=== PATIENT | male | born 1945 | race Caucasian/White ===

== ENCOUNTER 2017-11-25 03:15 | Inpatient (IN) | payer OTHER, MEDICAID ==
--- NOTE | 2017-11-25 03:26 | EDPHY ---
H & P Stated Complaint: seizure seizure Time Seen by Provider: 11/25/17 03:21 HPI/ROS: HPI The patient presents with concern for a seizure, brought in by ambulance. The patient was sleeping and roommates heard him fall out of his bed. They found him shaking in his arms and legs. He was not able to respond to any questions. He had this for about 5 min before paramedics arrived. Paramedics noticed with a described as myoclonic jerking of both of his arms and legs which is rhythmic in nature though the patient was able to track them and follow some very basic commands. He received 5 of Versed IM with complete resolution in his symptoms. Glucose was 100 On arrival here, he is noted to have a right-sided facial droop with right upper and lower extremity devika paresis.. REVIEW OF SYSTEMS Constitutional: No fever, no chills. Eyes: No discharge. ENT: No sore throat. Cardiovascular: No chest pain, no palpitations. Respiratory: No cough, no shortness of breath. Gastrointestinal: No abdominal pain, no vomiting. Genitourinary: No hematuria. Musculoskeletal: No back pain. Skin: No rashes. Neurological: No headache. PMHx: History of clavicle fracture per our old records Soc Hx: Lives with roommates apartment somewhat disheveled PHYSICAL General Appearance: Alert, no distress Eyes: Pupils equal and round no pallor or injection ENT, Mouth: Mucous membranes dry Respiratory: There are no retractions, lungs are clear to auscultation Cardiovascular: Regular rate and rhythm Gastrointestinal: Abdomen is soft and non-tender, no masses, bowel sounds normal Neurological: Alert, aphasic, right-sided facial droop, right-sided hemiparesis Skin: Warm and dry, no rashes Musculoskeletal: Neck is supple non tender Extremities: symmetrical, full range of motion Psychiatric: there is no agitation Source: Patient, EMS Exam Limitations: Clinical condition - Medical/Surgical History Hx Asthma: No Hx Chronic Respiratory Disease: No Hx Diabetes: No Hx Cardiac Disease: No Hx Renal Disease: No Hx Cirrhosis: No Hx Alcoholism: No Hx HIV/AIDS: No Hx Splenectomy or Spleen Trauma: No Other PMH: Denies - Social History Smoking Status: Never smoked Constitutional: Initial Vital Signs Temperature (C) 36.8 C 11/25/17 03:20 Heart Rate 95 11/25/17 03:20 Respiratory Rate 20 11/25/17 03:20 Blood Pressure 138/85 H 11/25/17 03:20 O2 Sat (%) 95 11/25/17 03:20 O2 Delivery Mode Room Air Allergies/Adverse Reactions: Penicillins Allergy (Verified 08/21/16 16:03) Unknown Home Medications: Medication Instructions Recorded IBUPROFEN 2 tab TID 08/17/16 Medical Decision Making - Diagnostics EKG Interpretation: EKG: Complete interpretation has been separately recorded in the [facility] archive. Summary impression: Normal sinus rhythm Imaging Results: CT scan of head without contrast and CTA of brain demonstrate left-sided frontal convexity measuring 5 x 7 x 6 with 1.2 cm of midline shift without any acute hemorrhage or obvious infarct, discussed with Dr. Westfall of Radiology. 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 He received Versed in the field with improvement in his shaking in his arms and legs. He has no prior history of seizures. Differential diagnosis includes seizure with Jan's paralysis, hypoglycemia, CVA , intracranial hemorrhage, mass. 3:20 a.m.- I met the paramedics at the bedside to obtain their report. It is noted the patient has a dense right devika paresis. 3:25 a.m.- I discussed the case with the on-call [facility] neurologist Dr. Pickard. We agree that the patient is not a tPA candidate given onset of symptoms is unclear , last seen normal by roommates before bed last night. He may be a candidate for intra-arterial tPA if he has findings on his CTA. 3:51 a.m.- Patient's CT and CTA is a consistent with meningioma with midline shift. I have consulted with Neurosurgery, Dr. Paul who recommends admission to the medicine service, Neurology consult, load of Keppra and MRI in the morning. She agrees with this is likely a Jan's paralysis from his seizure. She recommends Keppra 1 g now and then 750 twice daily. She recommends Step-Down Unit admission. 4:20 a.m.- Patient's weakness is resolving somewhat and he is able to speak though is still having some dysphagia. I have discussed the results of his imaging with him and he is aware that he has a brain tumor. I have discussed the case with the hospitalist Dr. Mcclellan who will admit the patient. Critical Care Time: CRITICAL CARE Critical care time spent by me, Dr. Jiang, exclusively with this patient was 30 minutes, exclusive of PA time and exclusive of procedures. The organ system at risk was neuro and I gave antiepileptic drugs, IV fluids, transferred patient to the step-down unit to prevent worsening of the patients condition. - Data Points Laboratory Results: Laboratory Results 11/25/17 03:20 11/25/17 03:20 11/25/17 11/25/17 11/25/17 03:20 03:20 03:20 WBC 7.69 10^3/uL 10^3/uL (3.80-9.50) RBC 4.64 10^6/uL 10^6/uL (4.40-6.38) Hgb 14.9 g/dL g/dL (13.7-17.5) Hct 43.8 % % (40.0-51.0) MCV 94.4 fL fL (81.5-99.8) MCH 32.1 pg pg (27.9-34.1) MCHC 34.0 g/dL g/dL (32.4-36.7) RDW 13.2 % % (11.5-15.2) Plt Count 236 10^3/uL 10^3/uL (150-400) MPV 10.7 fL fL (8.7-11.7) Neut % (Auto) 63.2 % % (39.3-74.2) Lymph % (Auto) 27.3 % % (15.0-45.0) [place] % (Auto) 7.5 % % (4.5-13.0) Eos % (Auto) 0.8 % % (0.6-7.6) Baso % (Auto) 0.9 % % (0.3-1.7) Nucleat RBC Rel Count 0.0 % % (0.0-0.2) Absolute Neuts (auto) 4.86 10^3/uL 10^3/uL (1.70-6.50) Absolute Lymphs (auto) 2.10 10^3/uL 10^3/uL (1.00-3.00) Absolute Monos (auto) 0.58 10^3/uL 10^3/uL (0.30-0.80) Absolute Eos (auto) 0.06 10^3/uL 10^3/uL (0.03-0.40) Absolute Basos (auto) 0.07 10^3/uL 10^3/uL (0.02-0.10) Absolute Nucleated RBC 0.00 10^3/uL 10^3/uL (0-0.01) Immature Gran % 0.3 % % (0.0-1.1) Immature Gran # 0.02 10^3/uL 10^3/uL (0.00-0.10) PT 13.9 SEC SEC (12.0-15.0) INR 1.05 (0.83-1.16) Sodium 141 mEq/L mEq/L (135-145) Potassium 4.5 mEq/L mEq/L (3.5-5.2) Chloride 100 mEq/L mEq/L (97-110) Carbon Dioxide 15 mEq/l L mEq/l (22-31) Anion Gap 26 mEq/L H mEq/L (8-16) BUN 9 mg/dL mg/dL (7-23) Creatinine 0.7 mg/dL mg/dL (0.7-1.3) Estimated GFR > 60 Glucose 78 mg/dL mg/dL (70-100) Calcium 9.8 mg/dL mg/dL (8.5-10.4) Medications Given: Discontinued Medications Levetiracetam (Keppra (Premix)) 100 mls @ 400 mls/hr IV EDNOW ONE Stop: 11/25/17 04:01 Last Admin: 11/25/17 04:16 Dose: 100 mls Departure - Departure Disposition: [facility] Inpatient Acute Clinical Impression: Seizure, Meningioma, Facial droop, Aphasia, Jan's paralysis Hemiparesis Qualifiers: Hemiparesis etiology: unspecified Hemiparesis laterality: right dominant side Qualified Code(s): G81.91 - Hemiplegia, unspecified affecting right dominant side Condition: Fair
--- NOTE | 2017-11-25 03:32 | CPEKG ---
Heart Rate: 96 RR Interval: 625 P-R Interval: 144 QRSD Interval: 116 QT Interval: 352 QTC Interval: 445 P [place]: -17 QRS [place]: 45 T Wave [place]: 18 EKG Severity - ABNORMAL ECG - EKG Impression: SINUS RHYTHM EKG Impression: NONSPECIFIC INTRAVENTRICULAR CONDUCTION DELAY EKG Impression: BORDERLINE ST DEPRESSION, LATERAL LEADS Electronically Signed By: Shasta Jiang 25-Nov-2017 06:21:32
[2017-11-25] MEDS ORDERED: levETIRAcetam 1000MG/NACL 100 ML IV ONE (03:47)
[2017-11-25 03:56] LABS: PLATELET COUNT 236 10^3/uL (150-400)
[2017-11-25 04:05] LABS: INR 1.05 (0.83-1.16); PROTIME(PATIENT) 13.9 SEC (12.0-15.0)
[2017-11-25] MEDS ORDERED: HYDROCODONE/APAP 5/325 TAB PO PRN (05:17)
[2017-11-25] MEDS ORDERED: ONDANSETRON 4 MG/2 ML VIAL IVP PRN (05:17)
[2017-11-25] MEDS ORDERED: ACETAMINOPHEN 325 MG TAB PO PRN (05:17)
[2017-11-25] MEDS ORDERED: LORazepam 2 MG/ML INJ IVP PRN ×2 (05:17→14:20)
[2017-11-25] MEDS ORDERED: NS 1,000 ML IV SCH (05:30)
--- NOTE | 2017-11-25 08:18 | PDGENHP ---
History and Physical - Chief Complaint Seizure - History of Present Illness Source-patient provides history is a fair historian. He does have some expressive aphasia. EMR was reviewed and case discussed with ED provider. HPI - pleasant 72-year-old gentleman with no significant past medical history presents emergency department visit after his roommate heard him fall on the floor. Patient was apparently having a seizure in EMS was called. Upon arrival they had reported patient with continued to have some rhythmic movements. He was given Versed with resolution of his symptoms. Patient was awake and verbal. He had noted right-sided hemiparesis and right lower facial drooping. Additionally patient had some expressive aphasia which has slowly improved during his time in the emergency department. Patient denies any headaches numbness or tingling with exception to the exception of weakness on right side. Patient denies any changes in vision.He reports that he has had 3 lifetime seizures starting several months ago. Patient reported similar symptoms with weakness and did not seek any medical attention as his symptoms resolved. He admits that he does not seek medical attention unless absolutely necessary high and reports that he is overall pretty healthy. History Information - Allergies/Home Medication List Allergies/Adverse Reactions: Penicillins Allergy (Verified 08/21/16 16:03) Unknown Home Medications: NK [No Known Home Meds] 11/25/17 [Last Taken Unknown] I have personally reviewed and updated: family history, medical history, social history, surgical history - Past Medical History Additional medical history: History of seizures not previously evaluated. Patient reports 2 episodes at home over the last several months. - Surgical History Additional surgical history: Right clavicle ORIF - Family History Additional family history: Mother with breast cancer - Social History Smoking Status: Never smoked Alcohol Use: Occasionally (1-2 beers daily. Patient has been decreasing down from 4 to 5) Drug Use: None Additional social history: Patient lives in a home with roommates. Code status is limited. Patient does not want to be intubated. Review of Systems Review of Systems: ROS: 10pt was reviewed & negative except for what was stated in HPI & below Physical Exam Physical Exam: Selected Entries 11/25/17 03:20 Blood Pressure Automatic Method Heart Rate 95 Respiratory 20 Rate O2 Sat (%) 95 Temperature (C) 36.8 C Blood Pressure 138/85 H Mean Arterial 102 H Pressure (MAP) O2 Delivery Room Air Mode Temperature Oral Source Temp Pulse Resp BP Pulse Ox 36.8 C 75 17 154/82 H 96 11/25/17 07:29 11/25/17 07:29 11/25/17 07:29 11/25/17 07:29 11/25/17 07:29 Constitutional: no apparent distress, unkempt, other (NAD. Patient lays quietly in bed awake and interactive. He is a little disheveled.) Eyes: PERRL, anicteric sclera, other (No nystagmus), No EOMI (Patient with right lateral gaze that does not cross midline.) Ears, Nose, Mouth, Throat: moist mucous membranes, no oral mucosal ulcers, poor dentition Cardiovascular: regular rate and rhythym, no murmur, rub, or gallop, No systolic murmur, No edema Peripheral Pulses: 1+: dorsalis-pedis (R), dorsalis-pedis (L) Respiratory: no respiratory distress, no rales or rhonchi, clear to auscultation , No expiratory wheeze Gastrointestinal: normoactive bowel sounds, soft, non-tender abdomen, no palpable masses Genitourinary: no bladder tenderness, No xie in urethra Skin: warm, normal color, no rashes or abrasions Musculoskeletal: other (Right-sided hemiparesis upper and lower extremities.), No generalized weakness Neurologic: AAOx3, sensation intact bilaterally, facial droop (Right lower facial droop with slight on the nasal labial fold flattening), No CN II-XII Intact (Right lower patient had her and her right lateral gaze not crossing midline) Psychiatric: interacting appropriately, poor insight, other (Patient with some expressive aphasia and repetitive words. Poor insight into degree of illness), No anxious, No depressed Lab Data & Imaging Review 11/25/17 03:20 11/25/17 03:20 WBC 7.69 10^3/uL (3.80-9.50) 11/25/17 03:20 RBC 4.64 10^6/uL (4.40-6.38) 11/25/17 03:20 Hgb 14.9 g/dL (13.7-17.5) 11/25/17 03:20 Hct 43.8 % (40.0-51.0) 11/25/17 03:20 MCV 94.4 fL (81.5-99.8) 03/12/18 03:20 MCH 32.1 pg (27.9-34.1) 11/25/17 03:20 MCHC 34.0 g/dL (32.4-36.7) 11/25/17 03:20 RDW 13.2 % (11.5-15.2) 11/25/17 03:20 Plt Count 236 10^3/uL (150-400) 11/25/17 03:20 MPV 10.7 fL (8.7-11.7) 11/25/17 03:20 Neut % (Auto) 63.2 % (39.3-74.2) 11/25/17 03:20 Lymph % (Auto) 27.3 % (15.0-45.0) 11/25/17 03:20 [place] % (Auto) 7.5 % (4.5-13.0) 11/25/17 03:20 Eos % (Auto) 0.8 % (0.6-7.6) 11/25/17 03:20 Baso % (Auto) 0.9 % (0.3-1.7) 11/25/17 03:20 Nucleat RBC Rel Count 0.0 % (0.0-0.2) 11/25/17 03:20 Absolute Neuts (auto) 4.86 10^3/uL (1.70-6.50) 11/25/17 03:20 Absolute Lymphs (auto) 2.10 10^3/uL (1.00-3.00) 11/25/17 03:20 Absolute Monos (auto) 0.58 10^3/uL (0.30-0.80) 11/25/17 03:20 Absolute Eos (auto) 0.06 10^3/uL (0.03-0.40) 11/25/17 03:20 Absolute Basos (auto) 0.07 10^3/uL (0.02-0.10) 11/25/17 03:20 Absolute Nucleated RBC 0.00 10^3/uL (0-0.01) 11/25/17 03:20 Immature Gran % 0.3 % (0.0-1.1) 11/25/17 03:20 Immature Gran # 0.02 10^3/uL (0.00-0.10) 11/25/17 03:20 PT 13.9 SEC (12.0-15.0) 11/25/17 03:20 INR 1.05 (0.83-1.16) 11/25/17 03:20 Sodium 141 mEq/L (135-145) 11/25/17 03:20 Potassium 4.5 mEq/L (3.5-5.2) 11/25/17 03:20 Chloride 100 mEq/L (97-110) 11/25/17 03:20 Carbon Dioxide 15 mEq/l (22-31) L 11/25/17 03:20 Anion Gap 26 mEq/L (8-16) H 11/25/17 03:20 BUN 9 mg/dL (7-23) 11/25/17 03:20 Creatinine 0.7 mg/dL (0.7-1.3) 11/25/17 03:20 Estimated GFR > 60 11/25/17 03:20 Glucose 78 mg/dL (70-100) 11/25/17 03:20 Calcium 9.8 mg/dL (8.5-10.4) 11/25/17 03:20 Imaging Review: Preliminary CT head report. LEFT FRONTAL CONVEXITY 5 X 7 X 6 CM MASS WITH MILD SHIFT TO RIGHT NO BLEED DISCUSSED WITH DR DÍAZ AT 0335 Visualized and Interpreted Chest x-ray results: Yes Chest X-Ray results: no infiltrate, other (Hardware over right clavicle) Visualized and Interpreted imaging results: Yes Visualized and Interpreted EKG results: Yes EKG additional interpertation: NSR in the 90s. IVCD. Less than [address] depressions in the lateral leads. No acute ST changes otherwise. QTC is 445. Assessment & Plan Assessment: Seizure (Acute) - have patient status post Versed home prior to her arrival. Will leave Ativan p.r.n.. He has been giving a 1000 mg dose of Keppra loaded of with plans to continue 750 mg twice daily for now. Neurosurgery was consulted on for patient's history of meningioma. Neurology consultation has also been entered. Jan's paralysis with (Acute)Aphasia (Acute)Facial droop (Acute)Hemiparesis ( Acute) - patient's symptoms have slowly been improving. She will CT CTA are within normal limits. Neurology consult as noted above. Meningioma (Acute) - neurosurgery consulted from the emergency department will evaluate patient. FEN - IV fluid supplementation. Electrolyte monitoring and replacement p.r.n. NPO at this time with patient has a right lower facial drooping. PPX - SCDs. Holding anticoagulation pending neurosurgical evaluation. Cor-limited resuscitation desired. She patient does no want to be intubated on life support. He is amenable to cardiac resuscitation. Disposition-patient has been admitted to inpatient status for further evaluation of seizures with findings of large hemangioma in shift. Anticipate greater than 2 midnight stay. Patient has been admitted to the SCU for close neurologic monitoring.
--- NOTE | 2017-11-25 10:14 | PDMN ---
Medical Necessity Medical necessity: est los>2mn for acute seizure, w/meningioma per CT, w/ expressive aphasia and R facial droop; admit to ICU/SDU for close neurologic monitoring, neuro consult; hx 2 prior sz's in recent mos; per order and H&P 11/26
[2017-11-25] MEDS ORDERED: DEXAMETHASONE 4 MG/ML VIAL IVP SCH (12:00)
--- NOTE | 2017-11-25 12:12 | ASMTCMCOM ---
CM Note CM Note Notes: 72yr old male admitted for Sz with Brain mass, R sided weakness, Aphasia, Facial droop. Patient has a Hx of Sz, R clavical fx, ETOH. Patient to have surgery next week. Spoke with patient. He is having a hard time expressing himself, and didn't want to talk about medical decisions or people who might represent him at this time. CM to follow. Date Signed: 11/25/2017 12:11 PM Electronically Signed By:Naa Newsome LCSW
--- NOTE | 2017-11-25 12:56 | HOSPPROG ---
Hospitalist Progress Note Assessment/Plan: #Acute seizure: due to meningioma: NSGY evaluated. IV steroids, Keppra #Meningioma: patient agreeable to surgery. Cont meds above #Acute encephalopathy: Jan's paralysis with seizure. Now resolved #Goals: has medical decision capacity and does not want anyone to make decisions for him. Will have Ethics help with MOST form #Right leg/arm weakness: PT/OT #Diet: regular #DVT ppx: SCDs #Disp: cont inpatient admission for PT/OT, IV steroids. May got to floor if ok by NSGY Subjective: right leg weakness is new Objective: Vital Signs Temp Pulse Resp BP Pulse Ox 36.8 C 77 18 146/80 H 93 11/25/17 07:29 11/25/17 12:10 11/25/17 12:10 11/25/17 12:10 11/25/17 12:10 11/24/17 11/25/17 11/26/17 05:59 05:59 05:59 Intake Total 0 Output Total 300 Balance -300 PT 13.9 SEC (12.0-15.0) 11/25/17 03:20 INR 1.05 (0.83-1.16) 11/25/17 03:20 - Physical Exam Constitutional: no apparent distress Eyes: PERRL Ears, Nose, Mouth, Throat: moist mucous membranes Cardiovascular: regular rate and rhythym Respiratory: no respiratory distress Gastrointestinal: normoactive bowel sounds Genitourinary: no bladder fullness, No xie in urethra Skin: warm Musculoskeletal: other (right UE/LE weakness) Neurologic: AAOx3, CN II-XII Intact Psychiatric: interacting appropriately ICD10 Worksheet Patient Problems: Problems Problem Status Onset Aphasia Acute Facial droop Acute Hemiparesis Acute Meningioma Acute Seizure Acute Jan's paralysis Acute Right clavicle fracture Acute
--- NOTE | 2017-11-25 13:51 | GCON ---
[f rep st] CONSULTATION DATE OF CONSULTATION: 11/25/2017 REFERRING PHYSICIAN: Sergio Velasquez MD HISTORY: The patient is a 72-year-old gentleman whom I am asked to see in neurologic consultation re garding seizure. He came to the hospital with a report of seizure early this morning. He said that he has had maybe a couple of other seizures in the past but has never had formal evaluation for that. He has some mild weakness on the right side from an old clavicular fracture which he thought might explain why his right side is getting weaker. He has subsequently been found to have a very large le ft hemisphere mass lesion, most likely thought to be meningioma with a [id number] shift. He was t reated with Versed. He has been started on anticonvulsant therapy. PAST SURGICAL HISTORY: He had surgery for his right clavicle several years ago. FAMILY HISTORY: Breast cancer. SOCIAL HISTORY: Reportedly, occasionally, might drink 1 or 2 beers per day but, historically, has co nsumed more alcohol than that. He lives home with roommates. No smoking reported. No reported drug use. PHYSICAL EXAMINATION: VITAL SIGNS: His current blood pressure is 154/82, pulse of 75, temperature 3 6.8, respirations 17. GENERAL: Well developed. Lying in the bed. No acute distress. HEENT: Eyes are clear. Oropharynx reveals very poor dentition. NEURO: He is oriented. He seems to have a lit tle bit of trouble with his verbal expression, but that is mild. It is not clear that that is differ ent from his baseline. Pupils 3 mm and reactive. Extraocular movements intact. Normal facial sensa tion. There is perhaps subtle right lower facial weakness, but that is also quite mild. The motor e xamination reveals severe right-sided weakness in the range of 1/5 in the right upper extremity and 2 /5 in the right lower extremity. Sensation is preserved. Hyporeflexia on the right. DATA REVIEWED: The imaging studies were reviewed and show the mass lesion in the left hemisphere, pedraza rrounding edema causing some mass effect, and [id number] shift. That is on the head CT. MRI is a pparently pending. Laboratory studies: Unremarkable electrolytes and CBC, other than he had a low bicarbonate when he c jesus alberto in, consistent with experiencing a seizure. IMPRESSION: This was a total unit time of 70 minutes. The patient had a life-threatening event with seizure in the setting of a large mass lesion in the left hemisphere, causing [id number] shift an d a generalized convulsion, which would have almost certainly been partial with secondary generalizat ion. He has experienced a few of these as well in the past but had never had brain imaging until now . It is clear that this lesion is the source of his symptoms and findings and will be addressed thro [facility] neurosurgical management later this week most likely. He is going to be started on Decadron to d ecrease the edema, and he should continue on treatment with Keppra which is currently 750 mg b.i.d. We will continue to monitor his progress. /[id number]/MODL
[2017-11-25] MEDS ORDERED: LORazepam 1 MG TAB PO PRN (14:20)
--- NOTE | 2017-11-25 15:21 | GCON ---
[f rep st] CONSULTATION INPATIENT CONSULTATION DATE OF CONSULTATION: 11/25/2017 CHIEF COMPLAINT: Seizure. HISTORY OF PRESENT ILLNESS: Patient is a 72-year-old gentleman who was found to be having a seizure yesterday by his roommate. He was brought to the emergency department by [facility] and was treated with seizure medication upon arrival to the emergency department. Patient states he has had two seizures prior to this episode. He states he has had right arm weakness that he started feeling approximately 1-1/2 years ago following a right clavicle surgery. Patient denies any headaches. He does have right-sided hemiparesis with some right facial droop as well. REVIEW OF SYSTEMS: Ten-point review of systems was performed and negative aside from what was mentioned in the HPI. MEDICAL HISTORY: Patient notes he has had 3 seizures in his lifetime, the most recent being yesterday. MEDICATIONS: Patient denies any home medications. SURGICAL HISTORY: Patient had right clavicle surgery 1-1/2 years ago. FAMILY HISTORY: Patient's mother had breast cancer. ALLERGIES: Penicillin. SOCIAL HISTORY: Patient drinks alcohol daily, approximately 2-3 beers. Drug use , none. Patient denies any use of nicotine products and does not use marijuana. Patient lives in a home with roommates. PHYSICAL EXAM: VITAL SIGNS: Blood pressure is 132/69, heart rate is 81, respiratory rate is 16, oxygen saturation 97% on room air, temperature is 36.8 degrees Celsius. HEENT: Head normocephalic and atraumatic. Pupils are equal, round, and reactive to light. EOMIs intact. Full visual mosqueda by confrontation. RESPIRATORY AND CARDIAC: Deferred. ABDOMEN: Deferred. GENITOURINARY AND RECTAL: Deferred. NEUROLOGIC: The patient is awake and alert and oriented to name, place, location, and time and situation. His memory is intact to immediate past and current events. Speech: He does have some expressive dysphasia. Cranial nerves 2-12 are grossly intact, aside from right facial droop and right accessory nerve being absent with shoulder shrug. Patient has 1/5 to 2/5 strength on the right side in the right upper and right lower extremities that includes deltoids, biceps, triceps, brachioradialis, wrist flexion, extensors, supervisor records change, intrinsic fingers, iliopsoas, quadriceps, hamstrings, plantar flexion, dorsiflexion, EHL testing. Patient's strength on the left in the left upper and left lower extremities are 5/5 in all the above muscle groups. Sensation is grossly intact to light touch throughout all dermatomal distributions in bilateral lower extremities. Reflexes, biceps, triceps, brachioradialis, knee jerk, and ankle jerk are 2+/4. Toes are downgoing bilaterally. Adam sign is negative. Babinski is negative. No evidence of clonus. LAB RESULTS: White blood cell count 7.69, hemoglobin 14.9, hematocrit 43.8, platelets 236. PT 13.9, INR 1.05. Sodium 141, potassium 4.5, BUN 9, creatinine 0.7, glucose 78. IMAGING: CT of the head performed at 0323 this morning demonstrates a very large left-sided mass. MRI of the brain has been ordered and is pending for further evaluation of this mass. ASSESSMENT AND PLAN: Patient is a 72-year-old gentleman who was brought to the emergency department yesterday by EMS following a witnessed seizure by his roommate. Patient underwent a CT of the brain which shows a very large left cranial mass. Patient is experiencing right-sided hemiparesis, as well as expressive dysphasia and a right facial droop. Patient is otherwise intact. MRI of the brain, with and without contrast, is pending. Based on the CT, it is likely this patient has a large meningioma that will need resected. Will keep him on seizure prophylaxis, using Keppra twice daily 750 mg. We will start him on some IV Decadron to help with edema. We will continue to follow his neurological exam closely and likely plan for surgery later this week or early next week with Dr. Sergio Velasquez. We will bring him to surgery sooner if his status declines. We will need to closely watch patient for any signs or symptoms of ETOH withdrawal as well. The patient was seen and examined in the intensive care unit today, November 25, 2017, at 7:[address] Jama and myself. Please call Neurosurgery with any questions or concerns. /[id number]/MODL MTDD
[2017-11-25] MEDS ORDERED: levETIRAcetam 750 MG in NS (SYRINGE) 50 ML IV SCH (16:00)
[2017-11-25] MEDS: levETIRAcetam 500 MG TAB PO SCH (16:41)
[2017-11-25] MEDS ORDERED: DEXAMETHASONE 4 MG TAB PO SCH (16:45)
[2017-11-25] MEDS: DEXAMETHASONE 4 MG TAB PO SCH (18:06)
--- NOTE | 2017-11-25 20:27 | GCON ---
[f rep st] CONSULTATION SIGN MANUFACTURER CONSULTATION DATE OF CONSULTATION: 11/25/2017 REASON FOR ADMISSION: Brain mass with seizure. HISTORY OF PRESENT ILLNESS: The patient is a pleasant 72-year-old white male who presented to the em ergency room after complaints of new onset seizure and left-sided weakness. CT scan of the head reve aled a mass. He was admitted to Intensive Care Unit. Neurology has been consulted, as has Neurosurg tammy. Currently, the patient is resting comfortably. He has had no further episodes of seizure. PAST MEDICAL HISTORY: None. PAST SURGICAL HISTORY: He has had a right clavicle ORIF. ALLERGIES: Penicillin. SOCIAL HISTORY: No history of tobacco use. Infrequent alcohol use. He lives at home with roommates . REVIEW OF SYSTEMS: A 10-point review of systems was performed. It is negative except for what is st ated in HPI. PHYSICAL EXAM: VITAL SIGNS: Blood pressure 146/80, pulse 77, respiration 18, temperature 36.8, oxyg en saturation is 93% on room air. GENERAL: He is a well-developed 72-year-old white male who is res ting comfortably, in no acute distress. HEENT: Eyes PERRL. EOMI. Throat shows no erythema or tons illar hypertrophy. NECK: Supple. There is no cervical adenopathy. HEART: Regular rate and rhythm without murmurs, rubs, or gallops. LUNGS: Diminished breath sounds, but no wheeze. ABDOMEN: Soft , nontender. Bowel sounds are present. EXTREMITIES: No clubbing, cyanosis, or edema. LABORATORIES: White count 7.6, hemoglobin 14, hematocrit 43, platelet count 236, INR 1.05, sodium 14 1, potassium 4.5, chloride 100, CO2 is 15, BUN 9, creatinine 0.7, glucose is 78. Chest x-ray is clear. CT scan of the head shows a left frontal 5 x 7.6 x 6 cm mass with mass effect and some evidence of herniation. IMPRESSION: 1. Brain mass, likely a meningioma. 2. Seizures. 3. Right-sided weakness. RECOMMENDATIONS: 1. Agree with IV steroids. 2. Neurosurgery to see. 3. Neurology has been consulted. 4. Continue Keppra. 5. DVT and PE prophylaxis. 6. Stress ulcer prophylaxis. /[id number]/MODL
[2017-11-26] MEDS: DEXAMETHASONE 4 MG TAB PO SCH ×4 (00:01→18:00)
[2017-11-26] MEDS: levETIRAcetam 500 MG TAB PO SCH ×2 (05:35→21:01)
--- NOTE | 2017-11-26 07:32 | NEUSURGPN ---
Assessment/Plan: Assessment: 72 yo male that is admitted to with critical care, Neurology and NS consulted who has a large left meningioma on CT Plan: -large left sided meningioma: pending MRI of the brain with and wo today -pt with 3rd time seizure with Jan's paralysis -continued right sided paresis-pt has some right data management specialist and biceps-2/5 -continue with steroids -continue with Keppra -pt has hx of drinking-watching for withdraw s/s -Dr Velasquez to possibly do surgery on Saturday 12/02 pending review of MRI and possible DTs -call with any questions or concerns -pt understands and agrees Subjective: Awake and alert. NAD. No f/c/n/v/d. No neck/chest/abd or gu complaints. Objective: AAO x 3, PERRLA/EOMI continued mild facial droop 5/5 LUE/LLE 0/5 to RUE/RLE except for 2/5 data management specialist, 2/5 biceps, right DF/PF at 3/5 Neuro Check Frequency: per routine Urinary Catheter in Place: No - Physician Discussed Patient with : Eva Patient Seen by : Eva Neurosurgery Physical Exam - Vitals, I&O, Labs I and O 11/25/17 11/26/17 11/27/17 05:59 05:59 05:59 Intake Total 1813 Output Total 2200 Balance -387 Weight 72.7 kg Intake: Oral (ml) 900 IV Infused (ml) 913 Ns 1,000 ml @ 75 mls/hr 913 IV CONT EMILY Rx#: [id number] Output: Urine (ml) 2200 Urinal 1999 Other: Number of Voids Urinal 1 Vital Signs Temp Pulse Resp BP Pulse Ox 37 C 55 L 15 103/61 100 11/26/17 00:00 11/26/17 04:00 11/26/17 04:00 11/26/17 04:00 11/26/17 04:00 Laboratory Results 11/26/17 05:45 ICD10 Worksheet Patient Problems: Problems Problem Status Onset Aphasia Acute Facial droop Acute Hemiparesis Acute Meningioma Acute Seizure Acute Jan's paralysis Acute Right clavicle fracture Acute
--- NOTE | 2017-11-26 08:41 | NEUROPROG ---
Assessment: Total unit time of 15 min. The patient is stable with a large left hemisphere, presumed meningioma causing mass effect and right devika paresis and recent seizures. He is comfortable continuing forward with the workup and seems agreeable to pursuing the surgical treatment which I told him I strongly endorse. Subjective: Patient reports having no seizure activity since admission. He has no specific complaints today and says he feels a little bit better after starting steroids yesterday. Objective: Vital Signs Temp Pulse Resp BP Pulse Ox 37 C 55 L 15 103/61 100 11/26/17 00:00 11/26/17 04:00 11/26/17 04:00 11/26/17 04:00 11/26/17 04:00 Laboratory Results 11/26/17 05:45 11/25/17 11/26/17 11/27/17 05:59 05:59 05:59 Intake Total 1813 Output Total 2200 Balance -387 PT 13.9 SEC (12.0-15.0) 11/25/17 03:20 INR 1.05 (0.83-1.16) 11/25/17 03:20 He continues with a right devika paresis. His language seems to be a little bit better today. We had a good discussion regarding his concerns and questions about this condition and management. Allergies/Adverse Reactions: Penicillins Allergy (Verified 08/21/16 16:03) Unknown
[2017-11-26] MEDS: THIAMINE HCL 500 MG in NS 500 ML IV SCH (09:35)
[2017-11-26] MEDS ORDERED: GADOBUTROL 10 ML VIAL IVP ONE (10:45)
--- NOTE | 2017-11-26 13:42 | HOSPPROG ---
Hospitalist Progress Note Assessment/Plan: #Acute seizure: due to meningioma: NSGY evaluated. IV steroids, Keppra #Meningioma: patient agreeable to surgery. Plan for 12/02. MRI pending #Acute encephalopathy: Jan's paralysis with seizure. Now resolved #Goals: has medical decision capacity and does not want anyone to make decisions for him. Will complete MOST form with him #Right leg/arm weakness: PT/OT #Etoh dependence: CIWA #Diet: regular #DVT ppx: SCDs #Disp: cont inpatient admission for PT/OT, IV steroids. May got to floor if ok by NSGY Subjective: still weak on right side. No ELIAS Objective: Vital Signs Temp Pulse Resp BP Pulse Ox 36.8 C 62 14 130/68 H 96 11/26/17 12:00 11/26/17 12:00 11/26/17 12:00 11/26/17 12:00 11/26/17 12:00 Laboratory Results 11/26/17 05:45 11/25/17 11/26/17 11/27/17 05:59 05:59 05:59 Intake Total 1813 Output Total 2200 Balance -387 PT 13.9 SEC (12.0-15.0) 11/25/17 03:20 INR 1.05 (0.83-1.16) 11/25/17 03:20 - Physical Exam Constitutional: cachectic Eyes: PERRL Ears, Nose, Mouth, Throat: moist mucous membranes Cardiovascular: regular rate and rhythym Respiratory: no respiratory distress Gastrointestinal: normoactive bowel sounds, soft, non-tender abdomen Genitourinary: No xie in urethra Skin: warm Musculoskeletal: other (will not let me examine his strength today) Neurologic: AAOx3, CN II-XII Intact Psychiatric: interacting appropriately, flat affect ICD10 Worksheet Patient Problems: Problems Problem Status Onset Aphasia Acute Facial droop Acute Hemiparesis Acute Meningioma Acute Seizure Acute Jan's paralysis Acute Right clavicle fracture Acute
--- NOTE | 2017-11-26 15:39 | ASMTCMCOM ---
CM Note CM Note Notes: Jayme Mendoza, contact in the chart for patient is his landlord/roommate. Patient didn't want anyone but himself to make medical decisions. Hospitalist to assist patient with MOST form. To have surgery sometime next week. CM to follow. Date Signed: 11/26/2017 03:39 PM Electronically Signed By:Naa Newsome LCSW
[2017-11-27] MEDS: DEXAMETHASONE 4 MG TAB PO SCH ×4 (01:23→18:11)
--- NOTE | 2017-11-27 09:58 | NEUSURGPN ---
Assessment/Plan: Assessment/Plan: Assessment: 72 yo male that is admitted to with critical care, Neurology and NS consulted who has a large left meningioma on CT Plan: -Continue -pt with 3rd time seizure with Jan's paralysis -continued right sided paresis-pt has some right construction project engineer and biceps-2/5 -continue with steroids -continue with Keppra -pt has hx of drinking-watching for withdraw s/s -MRI reviewed by Dr. Velasquez. Will plan for surgical resection on saturday afternoon. Will speak with OR today regarding scheduling for this -call with any questions or concerns -Dr. Velasquez will meet with the patient later today to discuss surgical procedure. Subjective: No changes since yesterday. Denies headache, nausea. Pending OR plans. Objective: AAO x 3, PERRLA/EOMI continued mild facial droop 5/5 LUE/LLE 0/5 to RUE/RLE except for 2/5 construction project engineer, 2/5 biceps, right DF/PF at 3/5 - Physician Discussed Patient with Dr.: Velasquez Patient Seen by Dr.: Velasquez Neurosurgery Physical Exam - Vitals, I&O, Labs I and O 11/26/17 11/27/17 11/28/17 05:59 05:59 05:59 Intake Total 1813 1230 Output Total 2200 2100 475 Balance -387 -870 -475 Weight 72.7 kg 72.3 kg Intake: Oral (ml) 900 1230 IV Infused (ml) 913 Ns 1,000 ml @ 75 mls/hr 913 IV CONT EMILY Rx#: [id number] Output: Urine (ml) 2200 2100 475 Bedside Commode 700 Urinal 2000 1400 475 Other: Intake Quantity Yes Sufficient Number of Voids Bedside Commode 1 Urinal 1 1 Vital Signs Temp Pulse Resp BP Pulse Ox 36.6 C 57 L 14 130/70 H 94 11/27/17 08:00 11/27/17 08:00 11/27/17 08:00 11/27/17 08:00 11/27/17 08:00 Laboratory Results 11/26/17 05:45 ICD10 Worksheet Patient Problems: Problems Problem Status Onset Aphasia Acute Facial droop Acute Hemiparesis Acute Meningioma Acute Seizure Acute Jan's paralysis Acute Right clavicle fracture Acute
[2017-11-27] MEDS: levETIRAcetam 500 MG TAB PO SCH ×2 (10:07→20:47)
[2017-11-27] MEDS: THIAMINE HCL 500 MG in NS 500 ML IV SCH (11:14)
--- NOTE | 2017-11-27 11:56 | HOSPPROG ---
Hospitalist Progress Note Assessment/Plan: Patient is a 72-year-old male with no significant past medical history. He was brought to the emergency department after his roommate heard him fall on the floor. He was having a seizure and EMS was called. He continued to have rhythmic type movements and was given Versed with resolution. It was noted that he had right-sided hemiparesis and right lower facial drooping as well as some expressive aphasia which slowly improved in the emergency department. Patient reported similar symptoms with weakness and did not seek any medical attention as the symptoms resolved. Today is my 1st encounter with the patient. Chart reviewed. Reviewed his imaging and consults notes. # large left hemisphere Meningioma causing mass effect, brain compression -surgery scheduled for Saturday on 12/02 -on steroids # acute seizure -none further during his stay, continue Keppra # right-sided hemiparesis -PT and OT were working with him #Acute encephalopathy: Jan's paralysis with seizure. Now resolved #Etoh dependence: CIWA #Diet: regular #. Plan. The previous provider met with the patient and discussed the most form. The patient does not want to fill it out at this time. He was to make his decisions and does not want others to do this for him. Subjective: Domingo is hungry during my evaluation, asked me to come back another time. Objective: Vital Signs Temp Pulse Resp BP Pulse Ox 36.6 C 57 L 14 130/70 H 94 11/27/17 08:00 11/27/17 08:00 11/27/17 08:00 11/27/17 08:00 11/27/17 08:00 Laboratory Results 11/26/17 05:45 11/26/17 11/27/17 11/28/17 05:59 05:59 05:59 Intake Total 1813 1230 Output Total 2200 2100 775 Balance -387 -870 -775 PT 13.9 SEC (12.0-15.0) 11/25/17 03:20 INR 1.05 (0.83-1.16) 11/25/17 03:20 - Physical Exam Constitutional: no apparent distress, appears nourished, not in pain Eyes: PERRL Ears, Nose, Mouth, Throat: hearing normal Respiratory: no respiratory distress Gastrointestinal: normoactive bowel sounds Skin: warm Neurologic: AAOx3 Psychiatric: interacting appropriately, not anxious ICD10 Worksheet Patient Problems: Problems Problem Status Onset Aphasia Acute Facial droop Acute Hemiparesis Acute Meningioma Acute Seizure Acute Jan's paralysis Acute Right clavicle fracture Acute
--- NOTE | 2017-11-28 07:45 | NEUSURGPN ---
Assessment/Plan: Assessment: 72 yo male that is admitted to with critical care, Neurology and NS consulted who has a large left meningioma on CT Plan: -Continue -pt with 3rd time seizure with Jan's paralysis -continued right sided paresis-pt has some right jacker feeder and biceps-2/5 -continue with steroids -continue with Keppra -pt has hx of drinking-watching for withdraw s/s -MRI reviewed by Dr. Velasquez. Will plan for surgical resection on Saturday afternoon -call with any questions or concerns -Discussed patient with Dr Velasquez Subjective: No new events Objective: AAO x 3, PERRLA/EOMI continued mild facial droop 5/5 LUE/LLE 0/5 to RUE/RLE except for 2/5 jacker feeder, 2/5 biceps, right DF/PF at 3/5 Neuro Check Frequency: per routine Urinary Catheter in Place: No - Physician Discussed Patient with Dr.: Velasquez Neurosurgery Physical Exam - Vitals, I&O, Labs I and O 11/27/17 11/28/17 11/29/17 05:59 05:59 05:59 Intake Total 1230 1000 Output Total 2100 2175 Balance -870 -1175 Weight 72.3 kg Intake: Oral (ml) 1230 1000 Output: Urine (ml) 2100 2175 Bedside Commode 700 1400 Urinal 1400 775 Other: Intake Quantity Yes Sufficient Number of Voids Bedside Commode 1 1 Urinal 1 1 Vital Signs Temp Pulse Resp BP Pulse Ox 36.9 C 59 L 16 120/79 92 11/28/17 04:39 11/28/17 04:39 11/28/17 04:39 11/28/17 04:39 11/28/17 04:39 Laboratory Results 11/26/17 05:45 ICD10 Worksheet Patient Problems: Problems Problem Status Onset Aphasia Acute Facial droop Acute Hemiparesis Acute Meningioma Acute Seizure Acute Jan's paralysis Acute Right clavicle fracture Acute
[2017-11-28] MEDS: THIAMINE HCL 500 MG in NS 500 ML IV SCH (08:08)
[2017-11-28] MEDS: DEXAMETHASONE 4 MG TAB PO SCH ×5 (08:10→23:01)
[2017-11-28] MEDS: levETIRAcetam 500 MG TAB PO SCH ×2 (08:11→23:01)
--- NOTE | 2017-11-28 12:02 | ASMTCMCOM ---
CM Note CM Note Notes: Pt scheduled for surgery for brain mass Saturday 12/02. Pt interested in [facility] inpatient rehab if he qualifies after surgery. Pt not interested in filling out MDPOA form today. Form left w pt, pt indicates he will likely not fill out MDPOA form since it is not required. Pt reports while he does not have any family he has a support system of friends. CM to follow pt progress and therapy recs post-surgery. Date Signed: 11/28/2017 12:02 PM Electronically Signed By:RAJINDER Alvarado
[2017-11-28] MEDS ORDERED: THIAMINE HCL 100 MG TAB PO SCH (14:20)
--- NOTE | 2017-11-28 17:40 | HOSPPROG ---
Hospitalist Progress Note Assessment/Plan: Patient is a 72-year-old male with no significant past medical history. He was brought to the emergency department after his roommate heard him fall on the floor. He was having a seizure and EMS was called. He continued to have rhythmic type movements and was given Versed with resolution. It was noted that he had right-sided hemiparesis and right lower facial drooping as well as some expressive aphasia which slowly improved in the emergency department. Patient reported similar symptoms with weakness and did not seek any medical attention as the symptoms resolved. # large left hemisphere Meningioma causing mass effect, brain compression -surgery scheduled for Saturday on 12/02 -on steroids # acute seizure -none further during his stay, continue Keppra # right-sided hemiparesis -PT and OT were working with him #Acute encephalopathy: Jan's paralysis with seizure. Now resolved #Etoh dependence: CIWA - He has no signs or symptoms of withdrawal #Diet: regular #. Plan. The previous provider met with the patient and discussed the most form. The patient does not want to fill it out at this time. He was to make his decisions and does not want others to do this for him. Case Management has also given him the most form. Subjective: Patient has no headaches, no seizures. Overall is feeling fine Objective: Vital Signs Temp Pulse Resp BP Pulse Ox 36.2 C 71 14 136/89 H 93 11/28/17 15:36 11/28/17 15:36 11/28/17 15:36 11/28/17 15:36 11/28/17 15:36 Laboratory Results 11/26/17 05:45 11/27/17 11/28/17 11/29/17 05:59 05:59 05:59 Intake Total 1230 1000 1350 Output Total 2100 2175 1250 Balance -870 -1175 100 PT 13.9 SEC (12.0-15.0) 11/25/17 03:20 INR 1.05 (0.83-1.16) 11/25/17 03:20 - Physical Exam Constitutional: chronically ill appearing, other (Thin) Eyes: PERRL Ears, Nose, Mouth, Throat: hearing normal Cardiovascular: regular rate and rhythym Respiratory: no respiratory distress Gastrointestinal: normoactive bowel sounds Skin: warm Musculoskeletal: other (Right hand breeder service technician slightly weaker than left. Was able to ambulate in the room with a walker with assist) Neurologic: AAOx3 Psychiatric: interacting appropriately ICD10 Worksheet Patient Problems: Problems Problem Status Onset Aphasia Acute Facial droop Acute Hemiparesis Acute Meningioma Acute Seizure Acute Jan's paralysis Acute Right clavicle fracture Acute
[2017-11-29] MEDS: DEXAMETHASONE 4 MG TAB PO SCH ×4 (07:22→23:14)
--- NOTE | 2017-11-29 08:12 | NEUSURGPN ---
Assessment/Plan: Assessment: 72 yo male that is admitted to with critical care, Neurology and NS consulted who has a large left meningioma on CT Plan: -Continue -pt with 3rd time seizure with Jan's paralysis -continued right sided paresis-pt has some right lead military analyst and biceps-2/5 -continue with steroids -continue with Keppra -pt has hx of drinking-watching for withdraw s/s -MRI reviewed by Dr. Velasquez. Will plan for surgical resection on Saturday afternoon -call with any questions or concerns -Discussed patient with Dr Velasquez Subjective: No new events or change in exam Objective: AAO x 3, PERRLA/EOMI continued mild facial droop 5/5 LUE/LLE 0/5 to RUE/RLE except for 2/5 lead military analyst, 2/5 biceps, right DF/PF at 3/5 Neuro Check Frequency: per routine Urinary Catheter in Place: No - Physician Discussed Patient with Dr.: Velasquez Neurosurgery Physical Exam - Vitals, I&O, Labs I and O 11/28/17 11/29/17 11/30/17 05:59 05:59 05:59 Intake Total 1000 1850 Output Total 2175 1650 Balance -1175 200 Weight 72.3 kg 72.6 kg Intake: Oral (ml) 1000 1850 Output: Urine (ml) 2175 1650 Bedside Commode 1400 Urinal 775 1650 Other: Intake Quantity Yes Sufficient Number of Voids Bedside Commode 1 Urinal 1 1 Vital Signs Temp Pulse Resp BP Pulse Ox 36.7 C 57 L 15 138/78 H 95 11/29/17 08:00 11/29/17 08:00 11/29/17 08:00 11/29/17 08:00 11/29/17 08:00 Laboratory Results 11/26/17 05:45 ICD10 Worksheet Patient Problems: Problems Problem Status Onset Aphasia Acute Facial droop Acute Hemiparesis Acute Meningioma Acute Seizure Acute Jan's paralysis Acute Right clavicle fracture Acute
[2017-11-29] MEDS: THIAMINE HCL 100 MG TAB PO SCH (09:16)
[2017-11-29] MEDS: levETIRAcetam 500 MG TAB PO SCH ×2 (09:17→20:40)
--- NOTE | 2017-11-29 16:02 | HOSPPROG ---
Hospitalist Progress Note Assessment/Plan: Patient is a 72-year-old male with no significant past medical history. He was brought to the emergency department after his roommate heard him fall on the floor. He was having a seizure and EMS was called. He continued to have rhythmic type movements and was given Versed with resolution. It was noted that he had right-sided hemiparesis and right lower facial drooping as well as some expressive aphasia which slowly improved in the emergency department. Patient reported similar symptoms with weakness and did not seek any medical attention as the symptoms resolved. # large left hemisphere Meningioma causing mass effect, brain compression -surgery scheduled for Saturday on 12/02 -on steroids # acute seizure -none further during his stay, continue Keppra # right-sided hemiparesis -PT and OT were working with him #Acute encephalopathy: Jan's paralysis with seizure. Now resolved #Etoh dependence: CIWA - He has no signs or symptoms of withdrawal #Diet: regular #. Plan. The previous provider met with the patient and discussed the most form. The patient does not want to fill it out at this time. He was to make his decisions and does not want others to do this for him. Case Management has also given him the most form. The patient voiced concerns on being on narcotics post op. Recommended cautious use as well as bowel protocol since last time he used narcotics he developed severe constipation Subjective: no new seizures. No new neuro deficits. right arm still weak Objective: Vital Signs Temp Pulse Resp BP Pulse Ox 36.7 C 57 L 15 138/78 H 95 11/29/17 08:00 11/29/17 08:00 11/29/17 08:00 11/29/17 08:00 11/29/17 08:00 Laboratory Results 11/26/17 05:45 11/28/17 11/29/17 11/30/17 05:59 05:59 05:59 Intake Total 1000 1850 Output Total 2175 1650 900 Balance -1175 200 -900 PT 13.9 SEC (12.0-15.0) 11/25/17 03:20 INR 1.05 (0.83-1.16) 11/25/17 03:20 - Physical Exam Constitutional: no apparent distress, appears nourished, not in pain Cardiovascular: regular rate and rhythym, no murmur, rub, or gallop Respiratory: no respiratory distress, no rales or rhonchi, clear to auscultation Neurologic: AAOx3, weakness (right arm forward flexion), CN II-XII Intact, No facial droop ICD10 Worksheet Patient Problems: Problems Problem Status Onset Right clavicle fracture Acute Seizure Acute Meningioma Acute Hemiparesis Acute Facial droop Acute Aphasia Acute Jan's paralysis Acute
[2017-11-30] MEDS: DEXAMETHASONE 4 MG TAB PO SCH ×4 (05:06→23:43)
[2017-11-30] MEDS: levETIRAcetam 500 MG TAB PO SCH ×2 (09:17→19:59)
[2017-11-30] MEDS: THIAMINE HCL 100 MG TAB PO SCH (09:18)
--- NOTE | 2017-11-30 11:07 | NEUSURGPN ---
Assessment/Plan: Assessment: 72 yo male with large left meningioma Plan: -pt with 3rd time seizure with Jan's paralysis -continued right sided paresis-pt has some right visual display associate and biceps-2/5 -continue with steroids -continue with Keppra -pt has hx of drinking-watching for withdraw s/s -MRI reviewed by Dr. Velasquez. Will plan for surgical resection on Saturday afternoon. [facility] MRI brain ordered for Saturday morning -call with any questions or concerns Subjective: Doing well this morning. No new questions or overnight issues. Objective: AAO x 3, PERRLA/EOMI 5/5 LUE/LLE 0/5 to RUE/RLE except for 2/5 visual display associate, 2/5 biceps, right DF/PF at 35 Neurosurgery Physical Exam - Vitals, I&O, Labs I and O 11/29/17 11/30/17 12/01/17 05:59 05:59 05:59 Intake Total 1850 400 Output Total 1650 1625 Balance 200 -1225 Weight 72.6 kg 78.1 kg Intake: Oral (ml) 1850 400 Output: Urine (ml) 1650 1625 Toilet 900 Urinal 1650 725 Other: Intake Quantity Yes Yes Sufficient Number of Voids Urinal 1 Vital Signs Temp Pulse Resp BP Pulse Ox 36.4 C 57 L 16 136/85 H 95 11/30/17 06:34 11/30/17 06:34 11/30/17 06:34 11/30/17 06:34 11/30/17 06:34 Laboratory Results 11/26/17 05:45 ICD10 Worksheet Patient Problems: Problems Problem Status Onset Aphasia Acute Facial droop Acute Hemiparesis Acute Meningioma Acute Seizure Acute Jan's paralysis Acute Right clavicle fracture Acute
--- NOTE | 2017-11-30 16:27 | HOSPPROG ---
Hospitalist Progress Note Assessment/Plan: 72 yo M pw seizure found to have large meningioma # large left hemisphere Meningioma causing mass effect, brain compression -surgery scheduled for Saturday on 12/02 # acute seizure -none further during his stay, continued Keppra ppx # right-sided hemiparesis -PT and OT were working with him #Acute encephalopathy: largely resolved #Etoh dependence: CIWA - He has no signs or symptoms of withdrawal #Diet: regular #. IP status Patient new to my care. Old records reviewed and summarized as above Subjective: no acute overnight events Objective: Vital Signs Temp Pulse Resp BP Pulse Ox 36.6 C 59 L 16 145/87 H 96 11/30/17 15:29 11/30/17 15:29 11/30/17 15:29 11/30/17 15:29 11/30/17 15:29 Laboratory Results 11/26/17 05:45 11/29/17 11/30/17 12/01/17 05:59 05:59 05:59 Intake Total 1850 400 350 Output Total 1650 1625 250 Balance 200 -1225 100 PT 13.9 SEC (12.0-15.0) 11/25/17 03:20 INR 1.05 (0.83-1.16) 11/25/17 03:20 awake alert nad anicteric op clear rrr no mrg cta b soft nt nd no cce warm dry well perfused ICD10 Worksheet Patient Problems: Problems Problem Status Onset Right clavicle fracture Acute Seizure Acute Meningioma Acute Hemiparesis Acute Facial droop Acute Aphasia Acute Jan's paralysis Acute
[2017-12-01] MEDS: DEXAMETHASONE 4 MG TAB PO SCH ×4 (05:37→23:22)
--- NOTE | 2017-12-01 08:42 | NEUSURGPN ---
Assessment/Plan: Assessment: 72 yo male with large left meningioma Plan: -pt with 3rd time seizure with Jan's paralysis -continued right sided weakness -continue with steroids -continue with Keppra -pt has hx of drinking-watching for withdraw s/s -Will plan for surgical resection tomorrow afternoon on 12/02. [facility] MRI brain ordered for Saturday morning. NPO after midnight -call with any questions or concerns Subjective: No new overnight issues. Sitting in bedside chair. Objective: Awake. Alert. Sitting in bedside chair Speech fluent Facial expression symmetrical Right sided weakness Neurosurgery Physical Exam - Vitals, I&O, Labs I and O 11/30/17 12/01/17 12/02/17 05:59 05:59 05:59 Intake Total 400 350 Output Total 1625 2700 Balance -1225 -2350 Weight 72.6 kg 80.3 kg Intake: Oral (ml) 400 350 Output: Urine (ml) 1625 2700 Bedside Commode 250 Toilet 900 450 Urinal 725 2000 Other: Intake Quantity Yes Yes Sufficient Number of Voids Bedside Commode 1 Toilet 1 Urinal 1 Vital Signs Temp Pulse Resp BP Pulse Ox 36.7 C 54 L 16 132/86 H 96 12/01/17 07:23 12/01/17 07:23 12/01/17 07:23 12/01/17 07:23 12/01/17 07:23 Laboratory Results 11/26/17 05:45 ICD10 Worksheet Patient Problems: Problems Problem Status Onset Aphasia Acute Facial droop Acute Hemiparesis Acute Meningioma Acute Seizure Acute Jan's paralysis Acute Right clavicle fracture Acute
[2017-12-01] MEDS: levETIRAcetam 500 MG TAB PO SCH ×2 (09:04→20:49)
[2017-12-01] MEDS: THIAMINE HCL 100 MG TAB PO SCH (09:04)
--- NOTE | 2017-12-01 14:44 | ASMTCMCOM ---
CM Note CM Note Notes: I met with patient to address MOST/MDPOA forms. He agreed to sign the MOST form (which had already been signed by Dr Valerio on 11/26/17), choosing full treatment and CPR. Form placed in chart. When pressed to assign an MDPOA, he said that he was estranged from his family and would not feel comfortable asking them. He did think of one friend, Av Ron, who he would feel comfortable asking. He asked me to search for this person on the internet, and I was able to locate his email address. I sent an email, asking him to call Case Management or call the patient directly. We will follow up on this as more information becomes available. Patient is to have [facility] brain MRI tomorrow AM and tumor resection tomorrow PM. Discharge needs TBD. Date Signed: 12/01/2017 02:43 PM Electronically Signed By:Kenia Kramer RN
--- NOTE | 2017-12-01 19:15 | HOSPPROG ---
Hospitalist Progress Note Assessment/Plan: 72 yo M pw seizure found to have large meningioma # large left hemisphere Meningioma causing mass effect, brain compression -surgery scheduled for Saturday on 12/02 # acute seizure -none further during his stay, continued Keppra ppx # right-sided hemiparesis--with Jan's paralysis , improved dramatically -PT and OT were working with him #Acute encephalopathy: largely resolved #Etoh dependence: CIWA - He has no signs or symptoms of withdrawal #Diet: regular #. IP status Patient new to my care. Old records reviewed and summarized as above Subjective: no acute overnight events, walking well, eating, no new complaints Objective: Vital Signs Temp Pulse Resp BP Pulse Ox 36.4 C 65 16 150/98 H 95 12/01/17 16:00 12/01/17 16:00 12/01/17 16:00 12/01/17 16:00 12/01/17 16:00 Laboratory Results 11/26/17 05:45 11/30/17 12/01/17 12/02/17 05:59 05:59 05:59 Intake Total 400 350 550 Output Total 1625 2700 625 Balance -1225 -2350 -75 PT 13.9 SEC (12.0-15.0) 11/25/17 03:20 INR 1.05 (0.83-1.16) 11/25/17 03:20 awake alert nad anicteric op clear rrr no mrg cta b soft nt nd no cce warm dry well perfused ICD10 Worksheet Patient Problems: Problems Problem Status Onset Right clavicle fracture Acute Seizure Acute Meningioma Acute Hemiparesis Acute Facial droop Acute Aphasia Acute Jan's paralysis Acute
[2017-12-02] MEDS: DEXAMETHASONE 4 MG TAB PO SCH ×3 (04:52→23:50)
--- NOTE | 2017-12-02 08:04 | NEUSURGPN ---
Assessment/Plan: Assessment: 72 yo male with large left meningioma Plan: -pt with 3rd time seizure with Jan's paralysis -continued right sided weakness -continue with steroids -continue with Keppra -Will plan for surgical resection this afternoon -[facility] MRI brain pending for this am -Patient to shower and wash hair with Hibiclens prior to surgery -call with any questions or concerns Subjective: Resting in bed, watching TV, no new events Objective: Awake. Alert Speech fluent Facial expression symmetrical Right sided weakness Neuro Check Frequency: per routine Urinary Catheter in Place: No - Physician Discussed Patient with : Eva Neurosurgery Physical Exam - Vitals, I&O, Labs I and O 12/01/17 12/02/17 12/03/17 05:59 05:59 05:59 Intake Total 350 550 Output Total 2700 2425 Balance -2350 -1875 Weight 80.3 kg 80.24 kg Intake: Oral (ml) 350 550 Output: Urine (ml) 2700 2425 Bedside Commode 250 Toilet 450 Urinal 2000 2425 Other: Intake Quantity Yes Yes Sufficient Number of Voids Bedside Commode 1 Toilet 1 Urinal 1 1 Number of Stools Bedside Commode 1 Vital Signs Temp Pulse Resp BP Pulse Ox 36.4 C 55 L 16 138/82 H 95 12/02/17 07:24 12/02/17 07:24 12/02/17 07:24 12/02/17 07:24 12/02/17 07:24 Laboratory Results 11/26/17 05:45 ICD10 Worksheet Patient Problems: Problems Problem Status Onset Aphasia Acute Facial droop Acute Hemiparesis Acute Meningioma Acute Seizure Acute Jan's paralysis Acute Right clavicle fracture Acute
[2017-12-02] MEDS: levETIRAcetam 500 MG TAB PO SCH ×2 (09:28→21:58)
[2017-12-02] MEDS: THIAMINE HCL 100 MG TAB PO SCH (09:28)
[2017-12-02] MEDS ORDERED: GADOBUTROL 10 ML VIAL IVP ONE (09:33)
[2017-12-02] MEDS ORDERED: CHLORHEXIDINE GLUC HIBICLENS 118 ML BTL TP ONE ×2 (12:06→13:26)
[2017-12-02] MEDS ORDERED: SURGIFLO MATRIX KIT WITH THROMBIN 8ml TP ONE (13:26)
[2017-12-02] MEDS ORDERED: BACITRACIN ZINC 14.2 GM OINTTUBE TP ONE (13:26)
[2017-12-02] MEDS ORDERED: HYDROGEN PEROXIDE 236 ML BOTTLE TP ONE (13:27)
[2017-12-02] MEDS ORDERED: THROMBIN (BOVINE) 5,000 UNIT VIAL TP ONE (13:27)
[2017-12-02] MEDS ORDERED: MANNITOL 20% 100 GM/500 ML BAG IV ONE (13:27)
[2017-12-02] MEDS ORDERED: AVITENE POWDER 1 GM JAR TP ONE (13:27)
[2017-12-02] MEDS ORDERED: BUPIVACAINE 0.25% 30 ML SDV ONE (13:27)
[2017-12-02] MEDS ORDERED: POVIDONE-IODINE 30 GM OINTTUBE TP ONE (13:28)
[2017-12-02] MEDS ORDERED: LR 1,000 ML IV ONE (13:30)
[2017-12-02] MEDS ORDERED: ALBUTEROL 3 ML DEYVIAL IH PRN (13:54)
[2017-12-02] MEDS ORDERED: DEXAMETHASONE 4 MG/ML VIAL IVP PRN (13:54)
[2017-12-02] MEDS ORDERED: NALOXONE HCL 0.4 MG/ML INJ IVP PRN (13:54)
[2017-12-02] MEDS ORDERED: fentaNYL 100 MCG/2 ML INJ IVP PRN (13:54)
[2017-12-02] MEDS ORDERED: ONDANSETRON 4 MG/2 ML VIAL IVP PRN (13:54)
[2017-12-02] MEDS ORDERED: HYDROmorphONE/DILAUDID 2 MG/ML INJ IVP PRN (13:54)
[2017-12-02] MEDS ORDERED: LABETALOL HCL 5 MG/ML 20 ML MDV IVP PRN (13:54)
--- NOTE | 2017-12-02 13:56 | PDANEPAE ---
ANE History of Present Illness Left Frontal Crani ANE Past Medical History - Cardiovascular History Hx Hypertension: No Hx Arrhythmias: No Hx Chest Pain: No Hx Coronary Artery / Peripheral Vascular Disease: No Hx CHF / Valvular Disease: No Hx Palpitations: No - Pulmonary History Hx COPD: No Hx Asthma/Reactive Airway Disease: No Hx Recent Upper Respiratory Infection: No Hx Oxygen in Use at Home: No Hx Sleep Apnea: No Sleep Apnea Screening Result - Last Documented: Negative - Neurologic History Hx Cerebrovascular Accident: No Hx Seizures: No Hx Dementia: No - Endocrine History Hx Diabetes: No - Renal History Hx Renal Disorders: No - Liver History Hx Hepatic Disorders: No - Neurological & Psychiatric Hx Hx Neurological and Psychiatric Disorders: No - Cancer History Hx Cancer: No - Congenital Disorder History Hx Congenital Disorders: No - GI History Hx Gastrointestinal Disorders: No - Chronic Pain History Chronic Pain: No - Surgical History Prior Surgeries: NOSE REPAIR IN 2001. TONSILLECTOMY AT 8 YRS OLD ANE Review of Systems Review of Systems: ANE Patient History - Allergies Allergies/Adverse Reactions: Penicillins Allergy (Verified 08/21/16 16:03) Unknown - Home Medications Home Medications: NK [No Known Home Meds] 11/25/17 [Last Taken Unknown] - NPO status NPO Since - Liquids (Date): 12/01/17 NPO Since - Liquids (Time): 23:50 NPO Since - Solids (Date): 12/01/17 NPO Since - Solids (Time): 21:00 - Smoking Hx Smoking Status: Never smoked - Alcohol Use Alcohol Use: Occasionally (1-2 beers daily. Patient has been decreasing down from 4 to 5) ANE Labs/Vital Signs - Labs Result Diagrams: 11/25/17 03:20 11/26/17 05:45 - Vital Signs Blood Pressure: 138/82 Heart Rate: 55 Respiratory Rate: 16 O2 Sat (%): 95 Height: 185.4 cm Weight: 80.24 kg
--- NOTE | 2017-12-02 14:00 | PDANEPAE ---
ANE History of Present Illness Left Frontal Crani ANE Past Medical History - Cardiovascular History Hx Hypertension: No Hx Arrhythmias: No Hx Chest Pain: No Hx Coronary Artery / Peripheral Vascular Disease: No Hx CHF / Valvular Disease: No Hx Palpitations: No - Pulmonary History Hx COPD: No Hx Asthma/Reactive Airway Disease: No Hx Recent Upper Respiratory Infection: No Hx Oxygen in Use at Home: No Hx Sleep Apnea: No Sleep Apnea Screening Result - Last Documented: Negative - Neurologic History Hx Cerebrovascular Accident: No Hx Seizures: No Hx Dementia: No - Endocrine History Hx Diabetes: No - Renal History Hx Renal Disorders: No - Liver History Hx Hepatic Disorders: No - Neurological & Psychiatric Hx Hx Neurological and Psychiatric Disorders: No - Cancer History Hx Cancer: No - Congenital Disorder History Hx Congenital Disorders: No - GI History Hx Gastrointestinal Disorders: No - Chronic Pain History Chronic Pain: No - Surgical History Prior Surgeries: NOSE REPAIR IN 2001. TONSILLECTOMY AT 8 YRS OLD ANE Review of Systems Review of Systems: - Exercise capacity METS (RN): 4 METS ANE Patient History - Allergies Allergies/Adverse Reactions: Penicillins Allergy (Verified 08/21/16 16:03) Unknown - Home Medications Home Medications: NK [No Known Home Meds] 11/25/17 [Last Taken Unknown] - NPO status NPO Since - Liquids (Date): 12/01/17 NPO Since - Liquids (Time): 23:50 NPO Since - Solids (Date): 12/01/17 NPO Since - Solids (Time): 21:00 - Smoking Hx Smoking Status: Never smoked - Alcohol Use Alcohol Use: Occasionally (1-2 beers daily. Patient has been decreasing down from 4 to 5) ANE Labs/Vital Signs - Labs Result Diagrams: 11/25/17 03:20 11/26/17 05:45 - Vital Signs Blood Pressure: 138/82 Heart Rate: 55 Respiratory Rate: 16 O2 Sat (%): 95 Height: 185.4 cm Weight: 80.24 kg ANE Physical Exam - Airway Neck exam: FROM Mallampati Score: Class 2 - Pulmonary Pulmonary: clear to auscultation - Cardiovascular Cardiovascular: systolic murmur - ASA Status ASA Status: III ANE Anesthesia Plan Anesthesia Plan: general endotracheal anesthesia Total IV Anesthesia: Yes
[2017-12-02] MEDS ORDERED: MUPIROCIN 2% 22 GM OINT ONE (14:03)
[2017-12-02] MEDS ORDERED: REMIFENTANIL HCL 1 MG VIAL ONE ×3 (14:08)
[2017-12-02] MEDS ORDERED: LIDOCAINE 2% 5 ML SDV ONE (14:08)
[2017-12-02] MEDS ORDERED: PROPOFOL/EMULSION 500 MG/50 ML BOTTLE IV ONE ×3 (14:08)
[2017-12-02] MEDS ORDERED: SUCCINYLCHOLINE CHLORIDE 200 MG/10 ML SYR IVP ONE (14:08)
[2017-12-02] MEDS: GENTAMICIN SULFATE 80 MG/2 ML VIAL ONE ×2 (15:26→15:36)
[2017-12-02] MEDS ORDERED: HYDROCODONE/APAP 10/325 TAB PO PRN (16:41)
[2017-12-02] MEDS ORDERED: MAGNESIUM HYDROXIDE 30 ML UDCUP PO PRN (16:41)
[2017-12-02] MEDS ORDERED: POLYETHYLENE GLYCOL 3350 17 GM PKT PO PRN (16:41)
[2017-12-02] MEDS ORDERED: OXYCODONE/APAP 5/325 TAB PO PRN (16:41)
[2017-12-02] MEDS ORDERED: BISACODYL 10 MG SUPP PR PRN (16:41)
[2017-12-02] MEDS ORDERED: LACTULOSE 20 GM/30 ML UDCUP PO PRN (16:41)
[2017-12-02] MEDS ORDERED: *MD ORDERING ONLY-DEXAMETHASONE TAPER PO SCH (16:45)
[2017-12-02] MEDS ORDERED: niCARdipine/NACL/200 ML BAG IV ONE (17:50)
[2017-12-02] MEDS ORDERED: PROPOFOL 200 MG/20 ML VIAL ONE (18:03)
[2017-12-02] MEDS ORDERED: ceFAZolin 1 GM VIAL ONE (18:12)
[2017-12-02] MEDS ORDERED: ONDANSETRON 4 MG/2 ML VIAL ONE (18:14)
--- NOTE | 2017-12-02 19:02 | POSTANESTH ---
Post Anesthetic Evaluation Cardiovascular Status: Normal, Stable Respiratory Status: Normal, Stable Level of Consciousness/Mental Status: Can Participate in Eval, Alert and Oriented Pain Control: Adequate, Prn Tx Ordered Nausea/Vomiting Control: Adequate, Prn Tx Ordered Complications Possibly Related to Anesthesia: None Noted
[2017-12-02] MEDS: NS W/ 20 KCl/L 1,000 ML IV SCH (19:07)
--- NOTE | 2017-12-02 19:14 | POSTOPPROG ---
Post Op Note Date of Operation: 12/02/17 Surgeon: Sergio Velasquez Electronic Technologist: Kassie Kam PA-C Anesthesia: GET(General Endotracheal) Pre-op Diagnosis: Left frontoparietal tumor Post-op Diagnosis: same Procedure: Left frontal craniotomy for resection of tumor Findings: See dictated operative note Inf/Abcess present in the surg proc area at time of surgery?: No Depth: Organ Space Complications: None SOAP Progress Note Assessment/Plan: S: Patient in ICU. Stable Objective: NAD, VSS, PERRLA/EOMI Speech fluent Moving all extremities to command BUE/BLE equal- Takes more concentration on right to move but appears mostly equal to left Incision c/d/i- prolene sutures and head wrap A: 72 yo male sp left frontal craniotomy for resection of tumor. 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 Velasquez in ICU 12/02/17 19:10 Objective: Vital Signs Temp Pulse Resp BP Pulse Ox 36.4 C 88 19 147/66 H 100 12/02/17 12:49 12/02/17 19:02 12/02/17 19:02 12/02/17 19:02 12/02/17 19:02 Laboratory Results 11/26/17 05:45 12/01/17 12/02/17 12/03/17 05:59 05:59 05:59 Intake Total 350 550 Output Total 2700 2425 Balance -2350 -1875 PT 13.9 SEC (12.0-15.0) 11/25/17 03:20 INR 1.05 (0.83-1.16) 11/25/17 03:20
[2017-12-02] MEDS: SENNOSIDES/DOCUSATE SODIUM TAB PO SCH (21:59)
[2017-12-02] MEDS: FAMOTIDINE 20 MG TAB PO SCH (21:59)
[2017-12-02] MEDS: niCARdipine/NACL 200 ML IV PRN (22:00)
[2017-12-03] MEDS: niCARdipine/NACL 200 ML IV PRN ×3 (01:35→06:11)
[2017-12-03] MEDS: NS W/ 20 KCl/L 1,000 ML IV SCH (02:02)
[2017-12-03] MEDS: ceFAZolin 2 GM/SWFI 2 GM/20 ML SYR IVP SCH ×2 (02:02→10:31)
[2017-12-03] MEDS: DEXAMETHASONE 4 MG TAB PO SCH ×4 (04:40→22:12)
--- NOTE | 2017-12-03 05:19 | GOP ---
[f rep st] OPERATIVE REPORT DATE OF OPERATION: 12/02/2017 SURGEON: Sergio Velasquez MD NEUROSURGEON: Sergio Velasquez MD IRRIGATION MANAGER: BARNEY Smith. ANESTHESIA: General endotracheal. PREOPERATIVE DIAGNOSIS: Large left frontoparietal meningioma, status post seizure. POSTOPERATIVE DIAGNOSIS: Large left frontoparietal meningioma, status post seizure. PROCEDURE PERFORMED: 1. Left frontoparietal craniotomy. 2. Microsurgical gross total resection of large left frontoparietal meningioma. 3. Use of the operative microscope. 4. Intraoperative ultrasound usage. 5. Stealth stereotactic neuronavigation for volumetric gross total resection of meningioma. FINDINGS: A successful meningioma resection. SPECIMENS: Left frontal meningioma. ESTIMATED BLOOD LOSS: 100 cc. INDICATIONS: The patient is a 72-year-old man who presented after having a seizure with a Jan's par alysis on the right side. This has pretty much recovered back to normal, but in the workup he was fo und to have a very large nearly 6 cm left convexity meningioma in the frontoparietal region with sign ificant brain compression. He was placed on steroids, and Keppra and allowed for his Jan's paralysi s to improve and he presents electively today for surgery. DESCRIPTION OF PROCEDURE: After informed consent was obtained from the patient, the patient was brou ght to the operating room, was placed in a supine position on the operating table. A formal time-out was performed, identifying the patient by name, medical record number, and date of . Preoperat lorrie antibiotics were given. The endotracheal tube was placed and general endotracheal anesthesia was smoothly induced. All appropriate lines were placed by Anesthesia. The patient was given preoperat lorrie Decadron and mannitol and the head was placed in the Hua pins and turned toward the right si de. The Stealth was then registered to the scalp and checked for accuracy using known surface landma rks. This was then used to plan an upside-down U shaped incision encompassing the entirety of the tu mor in the left frontoparietal region. The upper portion of the U crossed the midline, exposing the sagittal sinus. At this point, the small strip of hair was clipped. The head was sterilized using D uraPrep and allowed to dry. The head was then prepped in a normal sterile fashion. The skin incisio n was made using a 10 blade. The subcutaneous tissue was dissected using monopolar electrocautery. Edin clips were placed for hemostasis. Once the entirety of the incision was opened, the flap was r eflected inferiorly toward the ear on the left side. At this point, the skull landmarks were identif ied using Stealth and the sagittal suture could be seen. Three bur holes were placed along the sagit casper suture and the superior aspect of the craniotomy and 2 were placed inferior to the tumor. The du ra was stripped from beneath and the craniotome was used to turn a large about 8 cm craniotomy flap. Bleeding was controlled using bipolar electrocautery. A few dural tack-up stitches were placed. At this point, the intraoperative ultrasound was used to localize the area of the tumor being sure the craniotomy was large enough to make the dural opening and get a good Young grade resection. The du ra was then opened in the inferior aspect and carefully the dura was cut circumferentially around the tumor with care to coagulate any of the small dural arteries that were feeding the tumor. After we were able to circumferentially open the dura this effectively took the blood supply of the tumor. e operative microscope was then brought to the field and the remainder of the procedure was performed under high-power magnification. We began carefully dissecting the arachnoid bands that were holding some large cortical veins to the inferior aspect of the tumor and carefully the tumor cap catrachita from the javier. Once we had the anterior, posterior, and inferior aspect of the tumor f rom the surrounding brain the incision was made in the tumor capsule and we began debulking internall y. Using bipolar electrocautery and suction, we were able to effectively debulk the tumor and the ul trasonic aspirator was used as well, but the tumor was too fibrous for this to work very well. Once the tumor was debulked, we went back to the outside of the tumor capsule and carefully using careful microdissection, the tumor was from the underlying javier and numerous large cortical veins we re preserved and dissected away from the tumor capsule, which were draining up into the sagittal sinu s. As we continued this dissection, the tumor was effectively debulked and as we got to the superior aspect, we were able to separate this from the entry point of these veins into the sagittal sinus an d the tumor was removed completely. It did appear that we were able to get roughly 1 cm margins arou nd the dural attachment of the tumor giving a Young grade 0 resection. At this point, the peel miladis face was inspected and there was really no bleeding. The peel surface was covered with Surgicel. Al l the cortical veins appeared to be well intact. At this point, the wound was copiously irrigated us ing gentamicin irrigation. A piece of suturable DuraGen was then brought into the field and was cut to the size of the durotomy, which had been removed. This was then sewed in as a duraplasty using ru nning 4-0 Nurolon. Prior to the final closure, the wound was filled with sterile saline irrigation a nd a couple of a central dural tack-up stitches were placed. The craniotomy flap was then plated vaibhav k in place using Infusionsoft titanium plates and screws. The dural tack-up stitches were tied down holdi ng the duraplasty graft up to the bone flap. Again, the wound was copiously irrigated using bacitrac in irrigation. The galea was closed using interrupted 2-0 Vicryl and the skin was closed using a run kervin 3-0 Prolene. The patient was awakened in the operating room, was extubated and was transferred to the PACU in stable condition. There were no operative complications. I was scrubbed and present for the entire procedure. All sponge and needle counts were correct at the end of the case. FLUIDS AND URINE OUTPUT: Per the anesthesia record. DRAINS: None. /[id number]/MODL
--- NOTE | 2017-12-03 08:38 | NEUSURGPN ---
Date of Surgery: 12/02/17 Post Op Day: 1 Assessment/Plan: Assessment: 72 yo male sp left frontal craniotomy for resection of tumor. Suspected meningioma-path pending. POD#1 Plan: -Transfer to floor -HOB above 30 degrees -post op MRI pending this am -PT/OT/PROCUREMENT AGENT -DVT: TEDS, SCDS, Heparin Subq 5000 units BID no bolus to start 24 hours postop if MRI looks ok -Keppra- Continue -On 10 day Decadron taper starting on 12/02 -Will leave telfa dressing on today, remove tomorrow and shower daily with hair washing -Patient discussed with Dr Velasquez Subjective: Patient sitting up in bed doing well Objective: NAD, VSS, PERRLA/EOMI Speech fluent BUE/BLE equal- Takes more concentration on right to move but appears mostly equal to left Incision c/d/i-Telfa in place Neuro Check Frequency: per routine Urinary Catheter in Place: No - Physician Discussed Patient with Dr.: Velasquez Neurosurgery Physical Exam - Vitals, I&O, Labs I and O 12/02/17 12/03/17 12/04/17 05:59 05:59 05:59 Intake Total 550 3558 Output Total 2425 2055 Balance -1875 1503 Weight 80.24 kg 78.1 kg Intake: Oral (ml) 550 620 IV Intake (ml) 1500 IV Infused (ml) 1438 NS W/ 20 KCl/L 1,000 ml @ 883 100 mls/hr IV CONT EMILY Rx#:[id number] niCARdipine/NACL 200 ml @ 555 Titrate IV PRN PRN Rx#: [id number] Output: Urine (ml) 2425 1855 Catheter 1855 Urinal 2425 Estimated Blood Loss (ml) 200 Other: Intake Quantity Yes Sufficient Number of Voids Urinal 1 Number of Stools Bedside Commode 1 Vital Signs Temp Pulse Resp BP Pulse Ox 36.2 C 68 15 110/58 L 93 12/02/17 19:47 12/03/17 06:00 12/03/17 06:00 12/03/17 06:00 12/03/17 06:00 Laboratory Results 11/26/17 05:45 ICD10 Worksheet Patient Problems: Problems Problem Status Onset Aphasia Acute Facial droop Acute Hemiparesis Acute Meningioma Acute Seizure Acute Jan's paralysis Acute Right clavicle fracture Acute
[2017-12-03] MEDS: levETIRAcetam 500 MG TAB PO SCH ×2 (08:56→22:09)
[2017-12-03] MEDS: SENNOSIDES/DOCUSATE SODIUM TAB PO SCH ×2 (08:59→22:17)
[2017-12-03] MEDS: FAMOTIDINE 20 MG TAB PO SCH ×2 (08:59→22:12)
[2017-12-03] MEDS: THIAMINE HCL 100 MG TAB PO SCH (08:59)
[2017-12-03] MEDS ORDERED: GADOBUTROL 10 ML VIAL IVP ONE (13:52)
--- NOTE | 2017-12-03 14:48 | ASMTCMCOM ---
CM Note CM Note Notes: Spoke to patient who lives on the third floor with a roommate. Patient very interested in Rehab. Therapists recommending Acute Rehab. Spoke w/Admissions. Patient expressed an interest in having a friend, Av Ron [phone] be his MPOA. Collision Repair Technician to check on this. Date Signed: 12/03/2017 02:47 PM Electronically Signed By:Naa Newsome LCSW
--- NOTE | 2017-12-03 19:12 | GCON ---
[f rep st] CONSULTATION PULMONARY CONSULTATION DATE OF CONSULTATION: 12/03/2017 HISTORY OF PRESENT ILLNESS: This patient is a 72-year-old male who has not sought medical attention for much in the past and was admitted on 11/25 after a seizure and fall. He apparently had a couple of other seizures prior to this over the preceding several months and was also found to have an expre ssive aphasia and a facial droop. A CT revealed a large mass. He was placed on Decadron and Keppra and evaluated by the Neurosurgery service and underwent resection of a probable meningioma on 12/02. Surgery itself was uncomplicated. There were no blood pressure or hemodynamic insults, and the izabella ent was extubated easily in the OR and returned to the ICU for observation. Overnight, he has remain ed stable and said he feels literally dough maker in his head after surgery. REVIEW OF SYSTEMS: Otherwise negative. PAST SURGICAL HISTORY: Includes an open reduction/internal fixation of a clavicular fracture that oc curred after a mechanical fall. SOCIAL HISTORY: He says he is a nonsmoker. Does drink alcohol but has shown no signs of withdrawal here. FAMILY HISTORY: Includes breast cancer. CURRENT MEDICATIONS: Include Tylenol, [place], Dulcolax, Decadron, Pepcid, Keppra, Ativan p.r.n., on C IWA protocol, morphine, nicardipine p.r.n., which he is not on now, senna, normal saline, Percocet p. r.n., and thiamine. PHYSICAL EXAM: VITAL SIGNS: He is afebrile. His blood pressure 125/68, heart rate 69, respirations 10, oxygen saturation 98% on room air. GENERAL: He was awake, alert, in no apparent distress and a ble to speak in full sentences without using accessory muscles for breathing. HEENT: His incisions on his scalp were clean and dry, without evidence of infection. Pupils equally round and reactive to light. Nonicteric and noninjected. Mucous membranes are moist, without erythema or exudate, with p oor dentition. NECK: Supple, without adenopathy or jugular vein distention. LUNGS: Breath sounds were clear to auscultation bilaterally, without wheezes, rubs or rales. HEART: Regular rate and rhy thm, without murmurs, rubs, or gallops. ABDOMEN: Soft, nontender, nondistended, without hepatosplen omegaly. EXTREMITIES: No clubbing, cyanosis, or edema. NEUROLOGIC: Appeared to be nonfocal, inclu ding cranial nerves. SKIN: Warm and dry, without evidence of rash. LABORATORY DATA: There are no new labs. His CT scan showed the large mass as described above. ASSESSMENT/PLAN: 1. Seizures due to his underlying meningioma, which has subsequently been removed. He remains on De cadron and Keppra. There has been no further seizure activity since that time. 2. Hypoxia. He has very mild atelectasis that appears to be getting much better. He should continu e with pulmonary toilet, including incentive spirometry, and out of bed as much as tolerated. 3. Alcohol. He is showing no signs of withdrawal at this time and simply requires close observation and likely should transfer from the ICU in the very near future. /[id number]/MODL
[2017-12-04] MEDS: DEXAMETHASONE 4 MG TAB PO SCH ×3 (06:04→17:33)
--- NOTE | 2017-12-04 08:03 | NEUSURGPN ---
Date of Surgery: 12/02/17 Post Op Day: 2 Assessment/Plan: Assessment: 72 yo male sp left frontal craniotomy for resection of tumor. Suspected meningioma-path pending. POD#2 Postop MRI Brain: Mass effect has diminished over the interval with resection with hemorrhage at resection site, and pneumocephalus, and mild adjacent vasogenic edema. No definite residual mass. Plan: -Transfer to floor -HOB above 30 degrees -post op MRI completed -PT/OT/INSTRUCTIONAL TECHNOLOGY INSTRUCTOR -Continue Keppra -On 10 day Decadron taper starting on 12/02 -Telfa dressing removed this morning. Ok to shower daily -DVT: TEDS, SCDS, Heparin Subq 5000 units BID -Patient discussed with Dr Velasquez Subjective: Sitting in bedside chair. Pain controlled. Right arm weakness improving. Objective: Awake. Alert. PERRL. EOMI Muscle strength improving incision c/d/i - Physician Discussed Patient with : Eva Neurosurgery Physical Exam - Vitals, I&O, Labs I and O 12/03/17 12/04/17 12/05/17 05:59 05:59 05:59 Intake Total 3558 2308 Output Total 2055 4175 Balance 1503 -1867 Weight 78.1 kg 78 kg Intake: Oral (ml) 620 1250 IV Intake (ml) 1500 IV Infused (ml) 1438 1058 NS W/ 20 KCl/L 1,000 ml @ 883 683 100 mls/hr IV CONT EMILY Rx#:[id number] niCARdipine/NACL 200 ml @ 555 375 Titrate IV PRN PRN Rx#: [id number] Output: Urine (ml) 1855 4175 Catheter 1855 1175 Toilet 550 Urinal 2450 Estimated Blood Loss (ml) 200 Other: Number of Voids Catheter 2 Toilet 1 Urinal 1 Vital Signs Temp Pulse Resp BP Pulse Ox 36.6 C 57 L 16 144/89 H 93 12/04/17 07:25 12/04/17 07:25 12/04/17 07:25 12/04/17 07:25 12/04/17 07:25 Laboratory Results 11/26/17 05:45 ICD10 Worksheet Patient Problems: Problems Problem Status Onset Aphasia Acute Facial droop Acute Hemiparesis Acute Meningioma Acute Seizure Acute Jan's paralysis Acute Right clavicle fracture Acute
[2017-12-04] MEDS: levETIRAcetam 500 MG TAB PO SCH ×2 (08:20→20:43)
[2017-12-04] MEDS: THIAMINE HCL 100 MG TAB PO SCH (08:20)
[2017-12-04] MEDS: SENNOSIDES/DOCUSATE SODIUM TAB PO SCH ×2 (08:20→20:44)
[2017-12-04] MEDS: FAMOTIDINE 20 MG TAB PO SCH ×2 (08:20→20:44)
--- NOTE | 2017-12-04 19:08 | HOSPPROG ---
Hospitalist Progress Note Assessment/Plan: 72 yo M pw seizure found to have large meningioma # large left hemisphere Meningioma causing mass effect, brain compression -s/p resection 12/02, now out of ICU and doing well, right sided weakness improving # acute seizure -none further during his stay, continued Keppra ppx # right-sided hemiparesis--with Jan's paralysis , improved dramatically -PT and OT were working with him #Acute encephalopathy: largely resolved #Etoh dependence: CIWA - He has no signs or symptoms of withdrawal #Diet: regular #. IP status Subjective: no significant overnight events, patient feeling relatively well Objective: Vital Signs Temp Pulse Resp BP Pulse Ox 36.6 C 66 16 157/89 H 93 12/04/17 16:00 12/04/17 16:00 12/04/17 16:00 12/04/17 16:00 12/04/17 16:00 Laboratory Results 11/26/17 05:45 12/03/17 12/04/17 12/05/17 05:59 05:59 05:59 Intake Total 3558 2308 Output Total 2055 4175 600 Balance 1503 -1867 -600 PT 13.9 SEC (12.0-15.0) 11/25/17 03:20 INR 1.05 (0.83-1.16) 11/25/17 03:20 awake alert anicteric op clear rrr no mrg cta b soft nt nd no cce ICD10 Worksheet Patient Problems: Problems Problem Status Onset Right clavicle fracture Acute Seizure Acute Meningioma Acute Hemiparesis Acute Facial droop Acute Aphasia Acute Jan's paralysis Acute
[2017-12-04 23:31] VITALS: O2SAT 94
[2017-12-05] MEDS: DEXAMETHASONE 4 MG TAB PO SCH ×2 (00:12→12:09)
[2017-12-05 07:21] VITALS: BP 140/89; PULSE 56; RESP 14; TEMP 97.5
[2017-12-05] MEDS: levETIRAcetam 500 MG TAB PO SCH (08:13)
[2017-12-05] MEDS: FAMOTIDINE 20 MG TAB PO SCH (08:16)
[2017-12-05] MEDS: SENNOSIDES/DOCUSATE SODIUM TAB PO SCH (08:16)
[2017-12-05] MEDS: THIAMINE HCL 100 MG TAB PO SCH (08:16)
--- NOTE | 2017-12-05 09:27 | NEUSURGPN ---
Assessment/Plan: Assessment: 72 yo male sp left frontal craniotomy for resection of tumor. Suspected meningioma-path pending. POD#3 Postop MRI Brain: Mass effect has diminished over the interval with resection with hemorrhage at resection site, and pneumocephalus, and mild adjacent vasogenic edema. No definite residual mass. Plan: -HOB above 30 degrees -post op MRI completed and reviewed by Dr. Velasquez. He does not appreciate any hemorrhage. -PT/OT/ROLLER TURNER -Continue Keppra -On 10 day Decadron taper began on 12/02 -Telfa dressing removed this morning. Ok to shower daily - needs to shampoo daily, type of shampoo is not important per Dr Velasquez. -DVT: TEDS, SCDS, Heparin Subq 5000 units BID -Patient discussed with Dr Velasquez Subjective: Pt resting in bedside chair, feeling good and pleased with his improvement. Objective: AAOx3 NAD VSS MAEx4 Incision cdi Motor 5/5 BUE/BLE +LT Urinary Catheter in Place: No - Physician Discussed Patient with Dr.: Velasquez Neurosurgery Physical Exam - Vitals, I&O, Labs I and O 12/04/17 12/05/17 12/06/17 05:59 05:59 05:59 Intake Total 2308 750 375 Output Total 4175 2550 Balance -1867 -1800 375 Weight 78 kg 79.12 kg Intake: Oral (ml) 1250 750 375 IV Infused (ml) 1058 NS W/ 20 KCl/L 1,000 ml @ 683 100 mls/hr IV CONT EMILY Rx#:[id number] niCARdipine/NACL 200 ml @ 375 Titrate IV PRN PRN Rx#: [id number] Output: Urine (ml) 4175 2550 Catheter 1175 600 Toilet 550 Urinal 2450 1950 Other: Intake Quantity Yes Sufficient Number of Voids Catheter 2 Toilet 1 Urinal 1 1 Vital Signs Temp Pulse Resp BP Pulse Ox 36.4 C 56 L 14 140/89 H 94 12/05/17 07:19 12/05/17 07:19 12/05/17 07:19 12/05/17 07:19 12/05/17 07:19 Laboratory Results 11/26/17 05:45 ICD10 Worksheet Patient Problems: Problems Problem Status Onset Aphasia Acute Facial droop Acute Hemiparesis Acute Meningioma Acute Seizure Acute Jan's paralysis Acute Right clavicle fracture Acute
--- NOTE | 2017-12-05 11:16 | PDIAF ---
- Diagnosis Diagnosis: meningioma Code Status: Limited Resuscitation - Medication Management Discharge Medications: Medications to Continue on Transfer Acetaminophen [Tylenol 325mg (*)] 650 mg PO Q4HRS PRN tab 12/05/17 [Last Taken Unknown] Dexamethasone [Decadron 2 MG (*)] 4 mg PO Q12H tab 12/05/17 [Last Taken Unknown ] Famotidine [Pepcid 20 MG (*)] 20 mg PO BID tab 12/05/17 [Last Taken Unknown] HYDROcodone/APAP 10/325 [[place] [address] 10/325 (*)] 1 - 2 tab PO Q6HRS PRN tab 12/05/17 [Last Taken Unknown] LORazepam [Ativan (*)] 0 mg PO Q4HRS PRN tab 12/05/17 [Last Taken Unknown] Polyethylene Glycol 3350 [Miralax 17 gm (*)] 17 gm PO DAILY PRN pkt 12/05/17 [ Last Taken Unknown] Sennosides/Docusate Sodium [Senokot-S] 1 - 2 tab PO BID tab 12/05/17 [Last Taken Unknown] Thiamine HCl [Vitamin B-1] 100 mg PO DAILY tab 12/05/17 [Last Taken Unknown] levETIRAcetam [Keppra 500 mg (*)] 750 mg PO BID tab 12/05/17 [Last Taken Unknown] Discharge Medications: Refer to the Discharge Home Medication list for PRN reason. - Orders Services needed: Registered Nurse, Physical Therapy, Occupational Therapy Diet Recommendation: no restrictions on diet Diet Texture: Regular Texture Diet, Thin Liquids, Meds Whole w/Liquids - Follow Up Care Current Providers and Referrals: Sergio Velasquez MD [Medical Doctor] - NONE *PRIMARY CARE P,. [Primary Care Provider] - As per Instructions
--- NOTE | 2017-12-05 12:02 | ASMTCMCOM ---
CM Note CM Note Notes: Pt medically stable for d/c to [facility] inpatient rehab. [facility] Medicaid van scheduled for 1300, [place] auth is [id number]. Orders to be obtained via [employer]. Date Signed: 12/05/2017 12:01 PM Electronically Signed By:RAJINDER Alvarado
--- NOTE | 2017-12-05 15:05 | ASDISCHSUM ---
Discharge Information Plan Status:Inpatient Rehab Medically Cleared to Leave: Discharge Date:12/05/2017 01:11 PM CM D/C Disposition:[facility] IP ADT D/C Disposition:[facility] IP Projected Discharge Date:12/04/2017 11:00 AM Transportation at D/C:Wheelchair Van Discharge Delay Reason: Follow-Up Date:12/04/2017 11:00 AM Discharge Slot: Final Diagnosis:Brain mass with Sz, R sided weakness Placement Information Referral Type:Rehabilitation Hospital Referral ID:[id number] Provider Name:[facility] Inpatient [facility]hab Address 1:[address] Phone Number: Address 2: Fax Number: [facility]:[place] Selection Factors: State:[place] Patient Contact Information Contact Name:ASHU Relationship: Address: Home Phone: Work Phone: City: [facility] Phone: [facility] Code: Email: Financial Information Financial Class:Medicare Primary Plan Desc:MEDICARE INPATIENT Primary Plan Number:[id number] Secondary Plan Desc:[place] Secondary Plan Number:[id number] Assessment Information [facility] CM Progress Note CM Note CM Note Notes: 72yr old male admitted for Sz with Brain mass, R sided weakness, Aphasia, Facial droop. Patient has a Hx of Sz, R clavical fx, ETOH. Patient to have surgery next week. Spoke with patient. He is having a hard time expressing himself, and didn't want to talk about medical decisions or people who might represent him at this time. CM to follow. Date Signed: 11/25/2017 12:11 PM Electronically Signed By:Naa Newsome LCSW [facility] CM Progress Note CM Note CM Note Notes: Jayme Mendoza, contact in the chart for patient is his landlord/roommate. Patient didn't want anyone but himself to make medical decisions. Hospitalist to assist patient with MOST form. To have surgery sometime next week. CM to follow. Date Signed: 11/26/2017 03:39 PM Electronically Signed By:Naa Newsome LCSW [facility] CM Progress Note CM Note CM Note Notes: Pt scheduled for surgery for brain mass Saturday 12/02. Pt interested in [facility] inpatient rehab if he qualifies after surgery. Pt not interested in filling out MDPOA form today. Form left w pt, pt indicates he will likely not fill out MDPOA form since it is not required. Pt reports while he does not have any family he has a support system of friends. CM to follow pt progress and therapy recs post-surgery. Date Signed: 11/28/2017 12:02 PM Electronically Signed By:RAJINDER Alvarado [facility] CM Progress Note CM Note CM Note Notes: I met with patient to address MOST/MDPOA forms. He agreed to sign the MOST form (which had already been signed by Dr Valerio on 11/26/17), choosing full treatment and CPR. Form placed in chart. When pressed to assign an MDPOA, he said that he was estranged from his family and would not feel comfortable asking them. He did think of one friend, Av Ron, who he would feel comfortable asking. He asked me to search for this person on the internet, and I was able to locate his email address. I sent an email, asking him to call Case Management or call the patient directly. We will follow up on this as more information becomes available. Patient is to have [facility] brain MRI tomorrow AM and tumor resection tomorrow PM. Discharge needs TBD. Date Signed: 12/01/2017 02:43 PM Electronically Signed By:Kenia Kramer RN [facility] CM Progress Note CM Note CM Note Notes: Spoke to patient who lives on the third floor with a roommate. Patient very interested in Rehab. Therapists recommending Acute Rehab. Spoke w/Admissions. Patient expressed an interest in having a friend, Av Ron [phone] be his MPOA. to check on this. Date Signed: 12/03/2017 02:47 PM Electronically Signed By:Naa Newsome LCSW [facility] CM Progress Note CM Note CM Note Notes: Pt medically stable for d/c to [facility] inpatient rehab. [facility] Medicaid van scheduled for 1299, [place] durbin is [id number]. Orders to be obtained via [employer]. Date Signed: 12/05/2017 12:01 PM Electronically Signed By:RAJINDER Alvarado Intervention Information Intervention Type:*IM-Signed Date of Service:12/05/2017 12:21 PM Patient Type:Inpatient Staff Member:Basia Hancock Hours: Discipline: Severity: Comment:
--- NOTE | 2017-12-05 16:27 | GDS ---
[f rep st] DISCHARGE SUMMARY DISCHARGE DIAGNOSES: Include: 1. Meningioma, status post resection on 12/02/2017. 2. Acute seizure. 3. Right-sided hemiparesis with Jan paralysis, improving. 4. Acute encephalopathy, resolved. 5. History of alcohol dependence. HISTORY OF PRESENT ILLNESS: A 72-year-old male presenting with seizure, found to have a large mening ioma. For details of the patient's initial presentation please see the history and physical dated . CONSULTATIVE SERVICES: Include neurosurgery. PROCEDURES: On 12/02/2017, patient underwent meningioma resection. HOSPITAL COURSE BY ISSUE: 1. Acute seizure: Patient was admitted. Brain imaging on admission showed large meningioma. Marck cleaning was seen by Neurosurgery, initiated on Decadron and Keppra, and taken for excision. He has done w ell postoperatively and is being discharged to inpatient rehabilitation for ongoing rehabilitation. 2. Meningioma: Patient is status post excision. Will complete a taper of Decadron in the outpatien t setting. 3. Alcohol abuse: Patient with extensive alcohol history. Unclear how much of it was contributing to his initial presentation of seizure. When he is not withdrawing on the day of disposition and his encephalopathy now resolved. FOLLOWUP APPOINTMENTS: Include: 1. With Neurosurgery in 7-14 days. 2. Acute rehab for ongoing rehabilitation and care. PENDING STUDIES: At the time of this dictation, include surgical specimens which are pending patholo gy and will be followed by Neurosurgery in the outpatient setting. TIME SPENT: I spent greater than 30 minutes in the planning and coordination of this discharge. /[id number]/MODL
[2017-12-08] MEDS ORDERED: DEXAMETHASONE 2 MG TAB PO SCH
[2017-12-11] MEDS ORDERED: DEXAMETHASONE 2 MG TAB PO SCH
== END 2017-12-05 13:11 | DRG 25 ==
LOC: EDUNIT# → F2N 04:27 → F3N 11-26 14:50 → F2N 12-02 14:13 → F3N 12-03 15:30
PROVIDERS: ADMIT Family Medicine; ATTEND Hospitalist
PROC: 00B00ZX Excision of Brain, Open Approach, Diagnostic (ICD-10-PCS; principal; 2017-12-02 14:15)
DX: C70.0 Malignant neoplasm of cerebral meninges (principal); G93.40 Encephalopathy, unspecified; G93.5 Compression of brain; R56.9 Unspecified convulsions; R09.02 Hypoxemia; J98.11 Atelectasis; R29.810 Facial weakness; G83.84 Todd's paralysis (postepileptic); R47.01 Aphasia; F10.20 Alcohol dependence, uncomplicated
CPT/HCPCS: 92507-GN; 92523-GN; 92526-GN; 92610-GN; 96374; 97110-GP; 97112-GP; 97116-GP; 97162-GP; 97164-GP; 97166-GO; 97168-GO; 97530-GO; 97530-GP; 97535-GO; A9585; C1713; G8978-GP-CJ; G8978-GP-CL; G8979-GP-CI; G8979-GP-CK; G8987-GO-CK; G8988-GO-CJ; G8989-GO-CJ; G8996-GN-CH; G8996-GN-CI; G8997-GN-CH; G8997-GN-CI; G8998-GN-CH; G9165-GN-CI; G9166-GN-CI; G9167-GN-CI; J0171; J0330; J0690; J1100; J1580; J1953; J2405; J2704; J3411

== ENCOUNTER 2017-12-05 13:35 | Inpatient (IN) | payer OTHER, MEDICAID ==
[2017-12-05] MEDS ORDERED: DEXAMETHASONE 2 MG TAB PO SCH (14:45)
[2017-12-05] MEDS ORDERED: HYDROCODONE/APAP 10/325 TAB PO PRN (14:45)
[2017-12-05] MEDS ORDERED: LORazepam 1 MG TAB PO PRN (14:45)
[2017-12-05] MEDS ORDERED: POLYETHYLENE GLYCOL 3350 17 GM PKT PO PRN (14:45)
[2017-12-05] MEDS ORDERED: ACETAMINOPHEN 325 MG TAB PO PRN (14:45)
[2017-12-05] MEDS ORDERED: MELATONIN 3 MG TAB PO PRN (15:48)
--- NOTE | 2017-12-05 16:27 | GHP ---
[f rep st] HISTORY AND PHYSICAL POST ADMISSION PHYSICIAN EVALUATION AND REHABILITATION TREATMENT PLAN DATE OF ADMISSION: 12/05/2017 DATE OF EVALUATION: 12/05/2017. TIME OF EVALUATION: 1510. REFERRING FACILITY: [facility]. REFERRING PHYSICIAN: Dr. Valerio IMPAIRMENT GROUP: 2.1. DATE OF ONSET: 11/25/2017. CONSULTING PHYSICIANS: He was seen by the Neurosurgery Service, Dr. Velasquez; by Neurology, Dr. May; and by Pulmonary/Critical Care, Dr. Hannon. REHABILITATION DIAGNOSIS: Debility, status post excision of frontal meningioma. ETIOLOGIC DIAGNOSIS: Nontraumatic brain dysfunction. DATE OF SURGERY: 12/02/2017. HISTORY OF PRESENT ILLNESS: This is a 72-year-old man who was admitted to [facility] on 11/25/2017 after a fall due to a seizure. He had right-sided paralysis, right lower facial droop and expressive aphasia. Head CT showed a left frontal mass with mild [id number]-[id number] shift. Brain MRI showed a left posterior frontal convexity tumor, likely meningioma. He was begun on IV steroids, as well as levetiracetam. He proceeded to surgery on 12/02/2017, where he had a left frontal craniotomy for tumor resection. He was noted to have cognitive, as well as functional impairments and was thus transferred to inpatient rehabilitation. He had a history of alcohol use and was placed on the CIWA protocol. However, he never required any benzodiazepine treatment during his stay. Other labs and studies in the hospital: CBC was entirely within normal limits on the date of admission, 11/25/2017. Coagulation studies revealed normal PT and INR. Serum chemistry on 11/25 showed a slightly low carbon dioxide at 15 and an elevated anion gap at 26. Otherwise, renal function and electrolytes were within normal limits. Labs were repeated on 11/26/2017, and basic metabolic profile was normal, but for a slightly low creatinine of 0.6. Postoperative brain MRI showed mass effect, which had diminished over the interval, with hemorrhage at resection site, pneumocephalus and mild adjacent vasogenic edema. There was no definite residual mass seen. PRECAUTIONS: He is a fall risk. He has seizure precautions. ACTIVE COMORBIDITIES: He has no active tier 1, tier 2 or tier 3 comorbidities. PAST MEDICAL HISTORY: 1. Fall several years ago with a left clavicle fracture. 2. Right hand tendon injury in a fall. PAST SURGICAL HISTORY: He has had a right clavicular ORIF. PREHOSPITAL MEDICATIONS: He was on no medications. ADMISSION MEDICATIONS: 1. Acetaminophen 650 mg p.o. q.4 hours p.r.n. 2. Dexamethasone 4 mg p.o. b.i.d. with a taper over approximately 2 weeks. 3. Famotidine 20 mg p.o. b.i.d. 4. Hydrocodone/acetaminophen 1-2 tabs p.o. q.6 hours p.r.n. 5. Levetiracetam 750 mg p.o. b.i.d. 6. Lorazepam 0.5 mg p.o. q.4 hours p.r.n. 7. Polyethylene glycol 17 g p.o. daily p.r.n. 8. Senna/docusate 1-2 tabs p.o. b.i.d. 9. Thiamine 100 mg p.o. daily. ALLERGIES: He has an allergy listed to penicillins. SOCIAL HISTORY: He is not and has no children. He lives with a roommate in a third floor [facility] with multiple steps to enter. He has a history of smoking but quit remotely. He reports drinking approximately 2-3 beers a day. 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 [address] [facility]. FAMILY HISTORY: His mother had breast cancer. REVIEW OF SYSTEMS: He reports interrupted sleep and does not think he has been sleeping more than approximately 4 hours a night during his hospitalization. He denies headaches. He denies vision changes, but he says prior to his surgery he found it difficult to maintain concentration for reading, but previously he had been a big reader. He denies difficulty swallowing. He denies weakness, numbness or tingling of the extremities. He is not aware of any more seizure activity during his hospitalization. He denies cough or dyspnea. He denies chest pain or palpitations. He denies nausea, vomiting, constipation, or diarrhea, and thinks he moved his bowels about 5 times during his hospitalization since 11/25/2017. He denies dysuria or urinary frequency. He denies joint pain or joint swelling. He is aware of tightness in the tendons in the palm of his right hand and lack of coordination with the right hand, but he reports this has been improving. Otherwise, a 10-point review of systems is negative. PHYSICAL EXAM: VITAL SIGNS: Blood pressure is 160/96. Heart rate is 64. Respiratory rate is 17. Oxygen saturation is 95% on room air. Temperature is 36.6 degrees centigrade. His weight is 75.6 kg for a body mass index of 20.3. GENERAL: This is a well-nourished, well-developed man, somewhat unkempt, with long hair and poor dentition. Cooperative and in no acute distress. HEENT: Extraocular movements are intact. Pupils are equal, round, and reactive to light. Mucous members are moist. Dentition is in poor condition with multiple teeth missing on the mandible. Mucous membranes are moist. There are no oropharyngeal mucosal lesions. He has an uncrowded airway, Mallampati class 1. NECK: Supple. HEART: There is a regular rate and rhythm with no murmurs, rubs, or gallops. LUNGS: Clear to auscultation bilaterally. ABDOMEN: Soft, nontender, nondistended with normoactive bowel sounds and no hepatosplenomegaly. EXTREMITIES: There is no cyanosis, clubbing, or edema. NEUROLOGIC: He is alert and oriented x3. Cranial nerves 2-12 are grossly intact. His hand trim mechanic on the left is 4+/5, and on the right is 5/5. His triceps on the right is 4/5. Otherwise, all muscle groups are 5/5, generally. Sensation is intact to light touch. Deep tendon reflexes are 2+ bilaterally at the biceps, patellar, and Achilles tendons. Alternating [id number] is dysmetric and inaccurate on the right and is normal on the left. SKIN: He has a well-approximated surgical scar across his left frontal area toward the vertex of his scalp. There is no dehiscence, erythema or drainage. CURRENT LEVEL OF FUNCTION per the pre-admission screen: regarding diet, feeding , and swallowing, he was on regular texture with thin liquids, and it is noted that his dysphagia had resolved. Regarding grooming, he required setup and assist with cues and encouragement to incorporate his right upper extremity. Regarding bathing, he showered with standby assist and required cues for safety. He dressed with minimal assistance and voice cues for one-handed technique. Bladder and bowel were continent. Bed mobility required contact guard. Transfers required contact guard to minimal assist using a front- wheeled walker. Seated balance was independent. Standing balance required contact guard to minimal assist. His Hawkins balance score was 37/56, indicating a high fall risk. Endurance was good. He ambulated 150 feet with a front- wheeled walker and contact guard and 150 feet with minimal assist and no assistive device. Regarding communication, he was noted to have a mild deficit , and he had mild cognitive deficits in executive function. In the hospital, his right lower extremity strength showed 2/5 for knee extension, 1/5 for ankle dorsiflexion and plantar flexion, and 1/5 hip abduction and adduction. Right upper extremity strength was 3/5 at the elbow, and he was only able to use the right upper extremity as gross assist with functional tasks. On today's exam, he has better motor strength on the right upper and lower extremities. Otherwise, there are no significant changes from the preadmission screen. IMPRESSION: This is a 72-year-old man with little prior recent medical care, who presented to the hospital with a seizure. He was diagnosed with a mass in the left posterior frontal convexity of 7 x 5 x 6 cm consistent with a likely meningioma. He was initially treated with dexamethasone to reduce edema and levetiracetam to control seizures and eventually underwent surgery with a left frontal craniotomy and resection of the mass. Pathology on the mass is not yet available. Post surgically, his course has not been complicated, but he has functional deficits, including ataxia and loss of functional use of the right hand. He reports that he is right-handed. He needs assistance with ADLs, and he has poor balance, impairing his mobility, though he has good endurance. He has had some elevated blood pressures during his hospitalization and is notably hypertensive today on arrival at the inpatient rehabilitation unit. Otherwise, his postoperative course has been relatively uncomplicated, and he is appropriate for inpatient rehabilitation. His goal is to complete a rehabilitation stay and then discharge home with friends and supportive services. For a safe discharge, it is anticipated that he will achieve independence with eating and grooming, modified independence for transfers, dressing, bathing, and for ambulation with the least restrictive device on level and unlevel surfaces. He will demonstrate a good understanding of his impairments and limitations to be able to discharge independently, and he will be able to independently manage his medications. He will have therapy with physical therapy, occupational therapy, and speech and language pathology for 1 hour per day per discipline on 5-7 days of the week. His expected duration of stay is 7-10 days. It is anticipated that upon discharge he will continue to benefit from home health services, including nursing, speech and language pathology, a nurse's aide, occupational therapy and physical therapy. Additionally, he will likely benefit from a brain injury support group. PLAN: 1. Debility with ADL impairment due to right upper extremity ataxia and weakness and balance impairment affecting mobility following resection of left posterior frontal brain mass, likely meningioma, on 12/02/2017. PT and OT to optimize mobility and activities of daily living towards the independent to modified independent level for discharge home. 2. Cognitive effects, status post meningioma excision, to be assessed and treated per Speech and Language Pathology. 3. Seizure and Jan's paralysis. Paralysis has resolved. Continue levetiracetam. Will discuss duration of treatment with Neurosurgery. 4. Intracranial edema. Continue dexamethasone on taper as ordered by Neurosurgery. 5. History of alcohol use. Unclear whether or not he was an alcohol abuser. It is now 10 days since he was in the hospital, and he did not undergo withdrawal. No benzodiazepines were used. I will discontinue the lorazepam, and there is no need to continue the CIWA protocol. 6. Insomnia during his hospitalization. He thinks he will likely sleep better now that he is on the inpatient rehabilitation unit without the interruptions of especially the ICU. I have prescribed melatonin at h.s. on a p.r.n. basis. 7. Poor dentition. Perhaps dental care can be arranged for him after he completes his rehabilitation stay. 8. Followup. He needs to establish with a primary care provider. He will follow up with neurosurgeon, Dr. Velasquez, after his discharge. 9. Prophylaxis. He is ambulating greater than 150 feet. He has no hemiparesis. He was at elevated risk for DVT only because of his recent immobility, which has resolved, and his age. Will not initiate pharmacologic prophylaxis. He will have SCDs at night. /[id number]/MODL MTDD
[2017-12-05] MEDS: DEXAMETHASONE 4 MG TAB PO SCH (18:01)
[2017-12-05] MEDS: levETIRAcetam 500 MG TAB PO SCH (20:56)
[2017-12-05] MEDS: FAMOTIDINE 20 MG TAB PO SCH ×2 (20:58→21:04)
[2017-12-05] MEDS ORDERED: MELATONIN 3 MG TAB PO SCH (21:00)
[2017-12-05] MEDS: SENNOSIDES/DOCUSATE SODIUM TAB PO SCH (21:04)
[2017-12-06 08:24] LABS: PLATELET COUNT 239 10^3/uL (150-400)
[2017-12-06] MEDS: DEXAMETHASONE 4 MG TAB PO SCH ×2 (08:25→18:18)
[2017-12-06] MEDS: FAMOTIDINE 20 MG TAB PO SCH ×2 (08:25→20:33)
[2017-12-06] MEDS: levETIRAcetam 500 MG TAB PO SCH ×2 (08:25→20:32)
[2017-12-06] MEDS: THIAMINE HCL 100 MG TAB PO SCH (08:25)
[2017-12-06] MEDS: SENNOSIDES/DOCUSATE SODIUM TAB PO SCH ×2 (08:26→20:33)
--- NOTE | 2017-12-06 09:10 | SOAPPROG ---
SOAP Progress Note Assessment/Plan: Assessment: 72-year-old man status post resection of left posterior frontal meningioma on . Presented to the hospital with a seizure. * Debility with ADL impairment due to right upper extremity ataxia and weakness and balance impairment affecting mobility following . * PT and OT to optimize mobility and activities of daily living towards the independent to modified independent level for discharge home. * Cognitive effects, status post meningioma excision, to be assessed and treated per Speech and Language Pathology. * Seizure and Jan's paralysis. Paralysis has resolved. Continue levetiracetam : per UpToDate review, should have taper beginning 1 - 2 weeks post-surgery. This can likely wait until neurosurgery follow-up. * Intracranial edema. Continue dexamethasone on taper as ordered by Neurosurgery, through 12/14/2017. * Hyponatremia, with sodium 128 on 12/06/2017. 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 Initiated fluid restriction at 1500 cc per day starting 12/06. Repeat BMP on 12/09/2017. Await results of serum in urine osmolarity, serum uric acid and urine sodium to confirm diagnosis. * History of alcohol use. Unclear whether or not he was an alcohol abuser. He did not undergo withdrawal. No benzodiazepines were used. Discontinued the lorazepam, and there is no need to continue the CIWA protocol. * Insomnia during his hospitalization. Sleeping better on the inpatient rehabilitation unit without the interruptions of especially the ICU. I have prescribed melatonin at h.s. on a p.r.n. basis. * Poor dentition. Perhaps dental care can be arranged for him after he completes his rehabilitation stay. * Prophylaxis. He is ambulating greater than 150 feet. He has no hemiparesis. He was at elevated risk for DVT only because of his recent immobility, which has resolved, and his age. Will not initiate pharmacologic prophylaxis. He will have SCDs at night. Followup. He needs to establish with a primary care provider. He will follow up with neurosurgeon, Dr. Velasquez, after his discharge. 12/06/17 11:13 12/06/17 11:36 Subjective: No complaints. Slept well. Had a shower this morning. Reports feelings of lightheadedness. Reports increased thirst as well. Objective: Vital Signs Temp Pulse Resp BP Pulse Ox 36.8 C 64 16 145/91 H 94 12/06/17 06:48 12/06/17 06:48 12/06/17 06:48 12/06/17 06:48 12/06/17 06:48 Laboratory Results 12/06/17 06:30 12/06/17 06:30 12/05/17 12/06/17 12/07/17 05:59 05:59 05:59 Intake Total 1860 550 Output Total 1400 Balance 460 550 Physical Exam - Physical Exam General Appearance: WD/WN, alert, no apparent distress Respiratory: normal breath sounds, No crackles, No rhonchi, No wheezing Cardiac/Chest: regular rate, rhythm, No edema, No diastolic murmur, No systolic murmur Skin: normal color, warm/dry, other (Right frontal incision well approximated, sutures intact, no drainage or erythema.) Neuro/Psych: alert, normal mood/affect, oriented x 3 ICD10 Worksheet Patient Problems: Problems Problem Status Onset Aphasia Acute Facial droop Acute Hemiparesis Acute Meningioma Acute Right clavicle fracture Acute Seizure Acute Jan's paralysis Acute
--- NOTE | 2017-12-06 09:10 | PDOREHIP ---
Admission [facility] - Admission - 3 Day Assessment Period Admission Date/Day 1: 12/05/17 Day 2: 12/06/17 Day 3: 12/07/17 - Active Diagnoses Comorbidities and Co-existing Conditions at Admission: 32622. None of the Above - Skin Conditions Unhealed Pressure Ulcer (1 or more/Stage 1 or >)-Admission: 0. No
[2017-12-07] MEDS: DEXAMETHASONE 4 MG TAB PO SCH ×2 (09:16→18:19)
[2017-12-07] MEDS: SENNOSIDES/DOCUSATE SODIUM TAB PO SCH ×2 (09:17→21:01)
[2017-12-07] MEDS: FAMOTIDINE 20 MG TAB PO SCH ×2 (09:17→20:58)
[2017-12-07] MEDS: levETIRAcetam 500 MG TAB PO SCH ×2 (09:17→20:58)
[2017-12-07] MEDS: THIAMINE HCL 100 MG TAB PO SCH (09:18)
--- NOTE | 2017-12-07 13:26 | HOSPPROG ---
Hospitalist Progress Note Assessment/Plan: Assessment: 72-year-old man status post resection of left posterior frontal meningioma on 12/02/2017 c/b acute seizure Plan: * Debility with ADL impairment due to right upper extremity ataxia and weakness and balance impairment affecting mobility following . - PT and OT to optimize mobility and activities of daily living towards the independent to modified independent level for discharge home. * Cognitive effects, status post meningioma excision, to be assessed and treated per Speech and Language Pathology. * Seizure and Jan's paralysis. Paralysis has resolved, having some spasticity in R hand (1st digit) s/p breakfast and lunch, unclear if related to focal seizure vs. hyponatremia - getting repeat sNa now * Dysarthria. Acutely worsening over the past 24hrs, unclear if 2/2 hyponatremia vs. bleed in surgical area - sx currently stable, but if worsening dysarthria, then will get HCT at - will check glucometer - cont to work w/ [employer] * Intracranial edema. Continue dexamethasone on taper as ordered by Neurosurgery, through 12/14/2017. * Hyponatremia, with sodium 128 on 12/06/2017. 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 Intake past 24hrs 1.7, and prior 1.8, so d/w patient, will tighten to a 1.2 goal and encourage solute-containing fluids w/ meals (ensure/ smoothies) - rechecking sNa now * History of alcohol use. Unclear whether or not he was an alcohol abuser. He did not undergo withdrawal. No benzodiazepines were used. Discontinued the lorazepam, and there is no need to continue the CIWA protocol. * Insomnia during his hospitalization. Sleeping better on the inpatient rehabilitation unit without the interruptions of especially the ICU. I have prescribed melatonin at h.s. on a p.r.n. basis. * Poor dentition. Perhaps dental care can be arranged for him after he completes his rehabilitation stay. Diet. Per [employer] PPx. SCDs Code. Limited Dispo. ADD uncertain, he needs to establish with a primary care provider. He will follow up with neurosurgeon, Dr. Velasquez, after his discharge. Subjective: increased word finding difficulty this AM and spasticity in R hand/ paresthesias Objective: Vital Signs Temp Pulse Resp BP Pulse Ox 36.3 C 57 L 15 150/70 H 94 12/06/17 20:00 12/07/17 10:13 12/06/17 20:00 12/07/17 10:13 12/07/17 10:13 Laboratory Results 12/06/17 06:30 12/06/17 06:30 12/06/17 12/07/17 12/08/17 05:59 05:59 05:59 Intake Total 1860 1710 468 Output Total 1400 1300 300 Balance 460 410 168 - Physical Exam Constitutional: no apparent distress, not in pain, chronically ill appearing, No uncomfortable Ears, Nose, Mouth, Throat: moist mucous membranes, hearing normal, poor dentition, No oral thrush Cardiovascular: regular rate and rhythym, no murmur, rub, or gallop, No edema Respiratory: no respiratory distress, no rales or rhonchi, clear to auscultation Gastrointestinal: normoactive bowel sounds, soft, non-tender abdomen, no palpable masses Skin: other (surg site w/o erythema/induration/ulceration or tenderness) Neurologic: AAOx3, other (word-finding difficulty), No sensation intact bilaterally (subj paresthesias in R palmar), No weakness (motor 5/5 RUE) Psychiatric: interacting appropriately, not anxious, not encephalopathic, thought process linear ICD10 Worksheet Patient Problems: Problems Problem Status Onset Right clavicle fracture Acute Seizure Acute Meningioma Acute Hemiparesis Acute Facial droop Acute Aphasia Acute Jan's paralysis Acute
[2017-12-07] MEDS: SODIUM CHLORIDE 1,000 MG TAB PO SCH ×2 (15:40→20:57)
[2017-12-08] MEDS: DEXAMETHASONE 2 MG TAB PO SCH ×2 (08:09→16:59)
[2017-12-08] MEDS: SODIUM CHLORIDE 1,000 MG TAB PO SCH ×3 (08:09→16:59)
[2017-12-08] MEDS: levETIRAcetam 500 MG TAB PO SCH ×2 (08:10→20:59)
[2017-12-08] MEDS: THIAMINE HCL 100 MG TAB PO SCH (08:10)
[2017-12-08] MEDS: FAMOTIDINE 20 MG TAB PO SCH ×2 (08:10→20:59)
[2017-12-08] MEDS: SENNOSIDES/DOCUSATE SODIUM TAB PO SCH ×2 (08:10→20:58)
--- NOTE | 2017-12-08 12:19 | HOSPPROG ---
Hospitalist Progress Note Assessment/Plan: Assessment: 72-year-old man status post resection of left posterior frontal meningioma on 12/02/2017 c/b acute seizure, HTN, and dysarthia Plan: * Meningioma. Patient to follow-up w/ Dr. Velasquez, has some specific questions about the suspected duration of his tumor growth and its effect on his life up to this juncture, recommended that he discuss as outpt w/ Dr. Velasquez * Debility with ADL impairment due to right upper extremity ataxia and weakness and balance impairment affecting mobility - PT and OT to optimize mobility and activities of daily living towards the independent to modified independent level for discharge home. * Cognitive effects, status post meningioma excision, to be assessed and treated per Speech and Language Pathology. * Seizure and Jan's paralysis. Paralysis has resolved, having some spasticity in R hand (1st digit) on 12/07 but resolved on 12/08, unclear if exacerbated by worsening hyponatremia w/ underlying prior injury to RUE * Dysarthria. Worsened on 12/07, but stabilized thereafter, suspect 2/2 combination of neuro fatigue w/ increased therapy + worsening hyponatremia on , which has been subsequently improving - sx currently stable, but if worsening dysarthria, then will get HCT at - [facility] to work w/ [employer] * Intracranial edema. Continue dexamethasone on taper as ordered by Neurosurgery, through 12/14/2017. * Hyponatremia. Acute, likely 2/2 SIADH w/ elevated Sandeep, elevated uOsms, and low sOsms, worsened w/ sub-optimal fluid restriction, so tightened restriction to 1.2L/day - accomplished 1.5L restriction over past 24hrs, introduced salt tabs tid - sNa improved to 128 this AM, will order recheck for tomorrow * History of alcohol use. Unclear whether or not he was an alcohol abuser. He did not undergo withdrawal. No benzodiazepines were used. No indication for ongoing CIWA * Insomnia during his hospitalization. Sleeping better on the inpatient rehabilitation unit without the interruptions of especially the ICU. - cont melatonin at h.s. on a p.r.n. basis. * Poor dentition. Perhaps dental care can be arranged for him after he completes his rehabilitation stay. * HTN. Unclear if chronic, has not had any medical care prior to this episode - counseled patient that goal SBP is < 140 in setting of post-op period to reduce risk of bleed, and I would encourage him to start amlodipine 2.5mg now - patient declining to start Rx, wants to think about it more Diet. Per [employer] PPx. SCDs Code. Limited Dispo. ADD uncertain, he needs to establish with a primary care provider. He will follow up with neurosurgeon, Dr. Velasquez, after his discharge. Subjective: no hand spasticity this AM, improved speech Objective: Vital Signs Temp Pulse Resp BP Pulse Ox 36.3 C 59 L 16 141/86 H 96 12/08/17 06:41 12/08/17 06:41 12/08/17 06:41 12/08/17 06:41 12/08/17 06:41 Laboratory Results 12/06/17 06:30 12/08/17 06:00 12/07/17 12/08/17 12/09/17 05:59 05:59 05:59 Intake Total 1710 1566 180 Output Total 1300 2350 Balance 410 -784 180 - Physical Exam Constitutional: no apparent distress, not in pain, chronically ill appearing, No uncomfortable Ears, Nose, Mouth, Throat: poor dentition Cardiovascular: regular rate and rhythym, no murmur, rub, or gallop, No edema Respiratory: no respiratory distress, no rales or rhonchi, clear to auscultation Gastrointestinal: normoactive bowel sounds, soft, non-tender abdomen, no palpable masses, No distension Neurologic: AAOx3, No sensation intact bilaterally, No weakness (motor 5/5 bilat UE) Psychiatric: interacting appropriately, not anxious, not encephalopathic, thought process linear ICD10 Worksheet Patient Problems: Problems Problem Status Onset Right clavicle fracture Acute Seizure Acute Meningioma Acute Hemiparesis Acute Facial droop Acute Aphasia Acute Jan's paralysis Acute
[2017-12-09] MEDS: THIAMINE HCL 100 MG TAB PO SCH (08:22)
[2017-12-09] MEDS: SODIUM CHLORIDE 1,000 MG TAB PO SCH ×3 (08:22→17:50)
[2017-12-09] MEDS: levETIRAcetam 500 MG TAB PO SCH ×2 (08:22→20:12)
[2017-12-09] MEDS: DEXAMETHASONE 2 MG TAB PO SCH ×2 (08:22→17:50)
[2017-12-09] MEDS: FAMOTIDINE 20 MG TAB PO SCH (08:22)
[2017-12-09] MEDS: SENNOSIDES/DOCUSATE SODIUM TAB PO SCH ×2 (08:23→20:13)
--- NOTE | 2017-12-09 09:55 | SOAPPROG ---
SOAP Progress Note Assessment/Plan: Assessment: 72-year-old man status post resection of left posterior frontal meningioma on . Presented to the hospital with a seizure. * Debility with ADL impairment due to right upper extremity ataxia and weakness and balance impairment affecting mobility. * Initial functional independence measure of 93 on 12/09/2017. Has balance impairment with head turns or change of pace and with avoiding obstacles. Otherwise independent with bed mobility and transfers. Has ambulated 500 ft with no device. Her standby assist for ADLs. He has ataxia of the right hand and decreased insight. * Made independent in his room daytime starting 12/09/2017. * Continue PT and OT to optimize mobility and activities of daily living towards the independent to modified independent level for discharge home. * Cognitive effects, status post meningioma excision; mild word-finding difficulty call Ts but has had episodes of worse aphasia. * Continue Speech and Language Pathology. * Seizure and Jan's paralysis. Paralysis has resolved. Continue levetiracetam : per UpToDate review, should have taper beginning 1 - 2 weeks post-surgery. This can likely wait until neurosurgery follow-up. * Intracranial edema. Continue dexamethasone on taper as ordered by Neurosurgery, through 12/14/2017. * Hyponatremia, with sodium 128 on 12/06/2017, 126 on 12/09/2017. 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 * Initiated fluid restriction at 1500 cc per day starting 12/06/2017; has been further restricted to 1200 cc. However review of I&O 12/09/17 shows that he has not been fully compliant. * Encouraged compliance with fluid restriction. * D/C famotidine as it can cause dry mouth. * Repeat BMP on 12/10/2017. * History of alcohol use. Unclear whether or not he was an alcohol abuser. He did not undergo withdrawal. No benzodiazepines were used. Discontinued the lorazepam, and there is no need to continue the CIWA protocol. * Insomnia during his hospitalization. Sleeping better on the inpatient rehabilitation unit without the interruptions of especially the ICU. I have prescribed melatonin at h.s. on a p.r.n. basis. * Poor dentition. Perhaps dental care can be arranged for him after he completes his rehabilitation stay. * Prophylaxis. He is ambulating greater than 150 feet. He has no hemiparesis. He was at elevated risk for DVT only because of his recent immobility, which has resolved, and his age. Will not initiate pharmacologic prophylaxis. He will have SCDs at night. Followup. He needs to establish with a primary care provider. He will follow up with neurosurgeon, Dr. Velasquez, after his discharge. Attended staffing, 15 min. Discussed with case management, nursing, dietitian, PT, OT, [employer]EMAN. He plans to discharge to a [facility] where he lives with a roommate. He has several flights of steps to access his home. He needs to be able to travel by bus and ambulation. Set tentative discharge date for 2017. 12/09/17 12:17 Subjective: Feels thirsty. Dietitian reports he is also feeling hungry. She added Ensure 3 days ago. He has not been fully compliant with fluid restriction. Denies pain. Sleeping well. Objective: Vital Signs Temp Pulse Resp BP Pulse Ox 36.3 C 52 L 16 145/90 H 95 12/09/17 05:41 12/09/17 05:41 12/09/17 05:41 12/09/17 06:18 12/09/17 05:41 Laboratory Results 12/06/17 06:30 12/09/17 06:00 12/08/17 12/09/17 12/10/17 05:59 05:59 05:59 Intake Total 1566 1580 590 Output Total 2350 650 150 Balance -784 930 440 - Time Spent With Patient Time Spent With Patient: Greater than 35 min floor time today, including more than 50% of time in coordination of care during staffing meeting, and counseling patient. Physical Exam - Physical Exam General Appearance: WD/WN, alert, no apparent distress EENT: other (Poor dentition) Respiratory: normal breath sounds, No crackles, No rhonchi, No wheezing Cardiac/Chest: regular rate, rhythm, No edema, No diastolic murmur, No systolic murmur Skin: normal color, warm/dry, other (Scalp incision well approximated, sutures present, no erythema or discharge.) Neuro/Psych: alert, normal mood/affect, oriented x 3, No abnormal gait ICD10 Worksheet Patient Problems: Problems Problem Status Onset Aphasia Acute Facial droop Acute Hemiparesis Acute Meningioma Acute Right clavicle fracture Acute Seizure Acute Jan's paralysis Acute
[2017-12-10] MEDS: SODIUM CHLORIDE 1,000 MG TAB PO SCH ×3 (08:17→17:56)
[2017-12-10] MEDS: THIAMINE HCL 100 MG TAB PO SCH (08:17)
[2017-12-10] MEDS: levETIRAcetam 500 MG TAB PO SCH ×2 (08:17→20:00)
[2017-12-10] MEDS: DEXAMETHASONE 2 MG TAB PO SCH ×2 (08:18→17:56)
[2017-12-10] MEDS: SENNOSIDES/DOCUSATE SODIUM TAB PO SCH ×2 (10:13→20:01)
--- NOTE | 2017-12-10 15:21 | SOAPPROG ---
SOAP Progress Note Assessment/Plan: Assessment: 72-year-old man status post resection of left posterior frontal meningioma on . Presented to the hospital with a seizure. * Debility with ADL impairment due to right upper extremity ataxia and weakness and balance impairment affecting mobility. * Initial functional independence measure of 93 on 12/09/2017. Has balance impairment with head turns or change of pace and with avoiding obstacles. Otherwise independent with bed mobility and transfers. Has ambulated 500 ft with no device. Standby assist for ADLs. He has ataxia of the right hand and decreased insight. * Made independent in his room daytime starting 12/09/2017. * Continue PT and OT to optimize mobility and activities of daily living towards the independent to modified independent level for discharge home. * Cognitive effects, status post meningioma excision; mild word-finding difficulties but has had episodes of worse aphasia. * Continue Speech and Language Pathology. * Seizure and Jan's paralysis. Paralysis has resolved. Continue levetiracetam : per UpToDate review, should have taper beginning 1 - 2 weeks post-surgery. This can likely wait until neurosurgery follow-up. * Intracranial edema. Continue dexamethasone on taper as ordered by Neurosurgery, through 12/14/2017. * Hyponatremia, with sodium 128 on 12/06/2017, 126 on 12/09/2017. 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 * Initiated fluid restriction at 1500 cc per day starting 12/06/2017; has been further restricted to 1200 cc. However review of I&O 12/09/17 shows that he has not been fully compliant. * Encouraged compliance with fluid restriction. * D/C famotidine as it can cause dry mouth. * BMP on 12/10/2017 with improved Na to 130. Repeat BMP 12/12/2017.. * History of alcohol use. Unclear whether or not he was an alcohol abuser. He did not undergo withdrawal. No benzodiazepines were used. Discontinued the lorazepam, and there is no need to continue the CIWA protocol. * Insomnia during his hospitalization. Sleeping better on the inpatient rehabilitation unit without the interruptions of especially the ICU. I have prescribed melatonin at [facility]. on a p.r.n. basis. * Poor dentition. Perhaps dental care can be arranged for him after he completes his rehabilitation stay. * Prophylaxis. He is ambulating greater than 150 feet. He has no hemiparesis. He was at elevated risk for DVT only because of his recent immobility, which has resolved, and his age. Will not initiate pharmacologic prophylaxis. He will have SCDs at night. Followup. He needs to establish with a primary care provider. He will follow up with neurosurgeon, Dr. Velasquez, after his discharge. He plans to discharge to a [facility] where he lives with a roommate. He has several flights of steps to access his home. He needs to be able to travel by bus and ambulation. Set tentative discharge date for 12/13/2017. 12/10/17 15:19 Subjective: No complaints. Tolerating fluid restriction but finds it somewhat difficult. Does not notice return of symptoms after discontinuation of famotidine; had some reflux earlier during his current medical course. Objective: Vital Signs Temp Pulse Resp BP Pulse Ox 36.6 C 55 L 15 155/88 H 94 12/10/17 08:00 12/10/17 08:00 12/10/17 08:00 12/10/17 08:00 12/10/17 08:00 Laboratory Results 12/06/17 06:30 12/10/17 06:00 12/09/17 12/10/17 12/11/17 05:59 05:59 05:59 Intake Total 1580 970 280 Output Total 650 1150 Balance 930 -180 280 Physical Exam - Physical Exam General Appearance: WD/WN, alert, no apparent distress Respiratory: No respiratory distress, No accessory muscle use Skin: normal color, warm/dry Neuro/Psych: no motor/sensory deficits, alert, normal mood/affect, oriented x 3 ICD10 Worksheet Patient Problems: Problems Problem Status Onset Aphasia Acute Facial droop Acute Hemiparesis Acute Meningioma Acute Right clavicle fracture Acute Seizure Acute Jan's paralysis Acute
[2017-12-11] MEDS: levETIRAcetam 500 MG TAB PO SCH ×2 (08:18→20:09)
[2017-12-11] MEDS: DEXAMETHASONE 2 MG TAB PO SCH (08:19)
[2017-12-11] MEDS: THIAMINE HCL 100 MG TAB PO SCH (08:20)
[2017-12-11] MEDS: SODIUM CHLORIDE 1,000 MG TAB PO SCH ×3 (08:20→17:05)
[2017-12-11] MEDS: SENNOSIDES/DOCUSATE SODIUM TAB PO SCH ×3 (08:21→20:13)
--- NOTE | 2017-12-11 14:47 | SOAPPROG ---
SOAP Progress Note Assessment/Plan: Assessment: 72-year-old man status post resection of left posterior frontal meningioma on . Presented to the hospital with a seizure. * Debility with ADL impairment due to right upper extremity ataxia and weakness and balance impairment affecting mobility. * Initial functional independence measure of 93 on 12/09/2017. Has balance impairment with head turns or change of pace and with avoiding obstacles. Otherwise independent with bed mobility and transfers. Has ambulated 500 ft with no device. Standby assist for ADLs. He has ataxia of the right hand and decreased insight. * Made independent in his room 24 hr and on unit 7 AM - 10 PM starting 2017. * Continue PT and OT to optimize mobility and activities of daily living towards the independent to modified independent level for discharge home. * Cognitive effects, status post meningioma excision; mild word-finding difficulties but has had episodes of worse aphasia. * Continue Speech and Language Pathology. * Bus outing planned as it is his primary mode of transportation. * Seizure and Jan's paralysis. Paralysis has resolved. Continue levetiracetam : per UpToDate review, should have taper beginning 1 - 2 weeks post-surgery. This can likely wait until neurosurgery follow-up. * Intracranial edema. Continue dexamethasone on taper as ordered by Neurosurgery, through 12/14/2017. * Hyponatremia, with sodium 128 on 12/06/2017, 126 on 12/09/2017. 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 * Initiated fluid restriction at 1500 cc per day starting 12/06/2017; has been further restricted to 1200 cc. However review of I&O 12/09/17 shows that he has not been fully compliant. * Encouraged compliance with fluid restriction. * D/C famotidine as it can cause dry mouth. * BMP on 12/10/2017 with improved Na to 130. Repeat BMP 12/12/2017.. * History of alcohol use. Unclear whether or not he was an alcohol abuser. He did not undergo withdrawal. No benzodiazepines were used. Discontinued the lorazepam, and there is no need to continue the CIWA protocol. * Insomnia during his hospitalization. Sleeping better on the inpatient rehabilitation unit without the interruptions of especially the ICU. I have prescribed melatonin at [facility]. on a p.r.n. basis. * Poor dentition. Perhaps dental care can be arranged for him after he completes his rehabilitation stay. * Prophylaxis. He is ambulating greater than 150 feet. He has no hemiparesis. He was at elevated risk for DVT only because of his recent immobility, which has resolved, and his age. Will not initiate pharmacologic prophylaxis. He will have SCDs at night. Followup. He needs to establish with a primary care provider. He will follow up with neurosurgeon, Dr. Velasquez, after his discharge. He plans to discharge to a [facility] where he lives with a roommate. He has several flights of steps to access his home. He needs to be able to travel by bus and ambulation. Set discharge date for 12/13/2017. 12/11/17 14:44 Subjective: No complaints. Not in pain. No cough or dyspnea. Objective: Vital Signs Temp Pulse Resp BP Pulse Ox 36.4 C 53 L 17 136/81 H 98 12/11/17 07:51 12/11/17 07:51 12/11/17 07:51 12/11/17 07:51 12/11/17 07:51 Laboratory Results 12/06/17 06:30 12/10/17 06:00 12/10/17 12/11/17 12/12/17 05:59 05:59 05:59 Intake Total 970 1280 120 Output Total 1150 Balance -180 1280 120 Physical Exam - Physical Exam General Appearance: WD/WN, alert, no apparent distress Respiratory: No respiratory distress, No accessory muscle use Skin: normal color, warm/dry Neuro/Psych: no motor/sensory deficits, alert, normal mood/affect, oriented x 3 ICD10 Worksheet Patient Problems: Problems Problem Status Onset Aphasia Acute Facial droop Acute Hemiparesis Acute Meningioma Acute Right clavicle fracture Acute Seizure Acute Jan's paralysis Acute
[2017-12-12] MEDS: THIAMINE HCL 100 MG TAB PO SCH (08:43)
[2017-12-12] MEDS: SODIUM CHLORIDE 1,000 MG TAB PO SCH ×3 (08:43→17:21)
[2017-12-12] MEDS: levETIRAcetam 500 MG TAB PO SCH ×2 (08:43→19:53)
[2017-12-12] MEDS: DEXAMETHASONE 2 MG TAB PO SCH (08:43)
[2017-12-12] MEDS: SENNOSIDES/DOCUSATE SODIUM TAB PO SCH ×2 (08:43→19:56)
--- NOTE | 2017-12-12 10:38 | SOAPPROG ---
SOAP Progress Note Assessment/Plan: Assessment: 72-year-old man status post resection of left posterior frontal meningioma on . Presented to the hospital with a seizure. * Debility with ADL impairment due to right upper extremity ataxia and weakness and balance impairment affecting mobility. * Initial functional independence measure of 93 on 12/09/2017. Has balance impairment with head turns or change of pace and with avoiding obstacles. Otherwise independent with bed mobility and transfers. Has ambulated 500 ft with no device. Standby assist for ADLs. He has ataxia of the right hand and decreased insight. * Made independent in his room 24 hr and on unit 7 AM - 10 PM starting 2017. * Continue PT and OT to optimize mobility and activities of daily living towards the independent to modified independent level for discharge home. * Cognitive effects, status post meningioma excision; mild word-finding difficulties but has had episodes of worse aphasia. * Continue Speech and Language Pathology. * Bus outing planned as it is his primary mode of transportation. * Seizure and Jan's paralysis. Paralysis has resolved. Continue levetiracetam : per UpToDate review, should have taper beginning 1 - 2 weeks post-surgery. This can likely wait until neurosurgery follow-up. * Intracranial edema. Continue dexamethasone on taper as ordered by Neurosurgery, through 12/14/2017. * Hyponatremia, with sodium 128 on 12/06/2017, 126 on 12/09/2017. 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 * Initiated fluid restriction at 1500 cc per day starting 12/06/2017; has been further restricted to 1200 cc. However review of I&O 12/09/17 shows that he has not been fully compliant. * Encouraged compliance with fluid restriction. * D/C famotidine as it can cause dry mouth. * BMP on 12/10/2017 with improved Na to 130. BMP on 12/12/2017 with Na 128. No change in fluid restriction; recheck BMP 12/13/2017. * History of alcohol use. Unclear whether or not he was an alcohol abuser. He did not undergo withdrawal. No benzodiazepines were used. Discontinued the lorazepam, and there is no need to continue the CIWA protocol. * Insomnia during his hospitalization. Sleeping better on the inpatient rehabilitation unit without the interruptions of especially the ICU. I have prescribed melatonin at [facility]. on a p.r.n. basis. * Poor dentition. Perhaps dental care can be arranged for him after he completes his rehabilitation stay. * Prophylaxis. He is ambulating greater than 150 feet. He has no hemiparesis. He was at elevated risk for DVT only because of his recent immobility, which has resolved, and his age. Will not initiate pharmacologic prophylaxis. He will have SCDs at night. Followup. He needs to establish with a primary care provider. He will follow up with neurosurgeon, Dr. Velasquez, after his discharge. Will discontinue sutures today, 12/12/2017. He plans to discharge to a [facility] where he lives with a roommate. He has several flights of steps to access his home. He needs to be able to travel by bus and ambulation. Set discharge date for 12/13/2017. 12/12/17 10:19 Subjective: No complaints. Slept well. Not in pain. No cough or dyspnea, no fevers or chills. Objective: Vital Signs Temp Pulse Resp BP Pulse Ox 37.0 C 60 16 130/75 H 94 12/11/17 20:00 12/11/17 20:00 12/11/17 20:00 12/11/17 20:00 12/11/17 20:00 Laboratory Results 12/06/17 06:30 12/12/17 06:00 12/11/17 12/12/17 12/13/17 05:59 05:59 05:59 Intake Total 1280 1200 118 Balance 1280 1200 118 Physical Exam - Physical Exam General Appearance: WD/WN, alert, no apparent distress Respiratory: No respiratory distress, No accessory muscle use Skin: normal color, warm/dry, other (Incision on scalp with sutures, clean dry and intact.) Neuro/Psych: no motor/sensory deficits, alert, normal mood/affect, oriented x 3 ICD10 Worksheet Patient Problems: Problems Problem Status Onset Aphasia Acute Facial droop Acute Hemiparesis Acute Meningioma Acute Right clavicle fracture Acute Seizure Acute Jan's paralysis Acute
--- NOTE | 2017-12-12 10:42 | PDOREHIP ---
Admission [facility] - Admission - 3 Day Assessment Period Admission Date/Day 1: 12/05/17 Day 2: 12/06/17 Day 3: 12/07/17 Discharge [facility] - Discharge - 3 Day Assessment Period 2 Days Prior to Anticipated Discharge Date: 12/11/17 1 Day Prior to Anticipated Discharge Date: 12/12/17 Anticipated Discharge Date: 12/13/17 - Discharge Skin Conditions Unhealed Pressure Ulcer (1 or more/Stage 1 or >)-Discharge: 0. No
[2017-12-12] MEDS: levETIRAcetam 250 MG TAB PO SCH (19:53)
[2017-12-13 06:51] VITALS: BP 131/74; PULSE 54; RESP 18; TEMP 98.1; O2SAT 97
[2017-12-13] MEDS: SODIUM CHLORIDE 1,000 MG TAB PO SCH ×2 (08:25→12:21)
[2017-12-13] MEDS: levETIRAcetam 500 MG TAB PO SCH (08:26)
[2017-12-13] MEDS: levETIRAcetam 250 MG TAB PO SCH (08:26)
[2017-12-13] MEDS: THIAMINE HCL 100 MG TAB PO SCH (08:26)
[2017-12-13] MEDS: DEXAMETHASONE 2 MG TAB PO SCH (08:26)
[2017-12-13] MEDS: SENNOSIDES/DOCUSATE SODIUM TAB PO SCH (08:28)
--- NOTE | 2017-12-13 14:47 | GDS ---
[f rep st] DISCHARGE SUMMARY ADMITTING DIAGNOSIS: Debility, status post craniotomy and excision of a left frontal meningioma. PRINCIPAL DISCHARGE DIAGNOSES: 1. Debility, status post craniotomy and excision of a left frontal meningioma. 2. Hyponatremia. CONSULTATIONS: None. PROCEDURE PERFORMED: None. COMPLICATIONS: None. HISTORY AND HOSPITAL COURSE: This patient was admitted from [facility] where he had presented with a seizure, was diagnosed with a left frontal meningioma, and had craniotomy and excision of the meningioma. He initially had right upper extremity ataxia and balance impairment, but had rapid improvement. On 12/09/2017, four days after admission, his functional independence measure was 93, which is consistent with assisted living level of care. He was noted to have balance impairment with head turns or changes of pace, for instance to avoid obstacles. He was able to ambulate 500 feet with no device. He had continued improvement in balance and mobility and was made independent in his room 24 hours per day and on the unit from 7 a.m. to 10:00 p.m. starting on 12/11/2017. He continued to have some right upper extremity ataxia. Cognitive deficits were assessed and treated by Speech and Language Pathology. He was noted to have mild word-finding difficulties. There were some episodes of worsening aphasia, but these resolved. He had a bus outing with speech and language pathology to ensure that he was able to use his usual primary mode of transportation and he did well. He had hyponatremia showing sodium of 128 on 12/06/2017, and decreased to 126 on 12/09/2017. He was initially placed on a 1500 cc per day fluid restriction, but this was further restricted to 1200 cc. Sodium finally improved to 132 on the day of discharge. He was advised to continue the fluid restriction and we will have followup in 3 days at the [facility], his new primary care clinic. As he had a seizure prior to his surgery he was continued on levetiracetam. Duration and eventual taper will be per Neurosurgery. He had a history of regular alcohol use and much of his primary social connections are spending time at bars. However, he had no signs or symptoms of alcohol withdrawal through his hospitalization or his rehabilitation stay, so it is likely that he does not have alcohol abuse or dependence. LABORATORIES AND STUDIES: Other than the hyponatremia and renal function, the electrolytes are essentially normal. He ran a low creatinine of 0.5 on the day of discharge. Liver function tests were normal on 12/08/2017, but for a slightly low albumin at 3. CBC on 12/06/2017, revealed an elevated white blood cell count consistent with corticosteroid treatment and slight anemia with a hemoglobin of 13.6 and a hematocrit of 37.4. Urinalysis showed a urine osmolality of 532 and urine random sodium of 73 on 12/06/2017. On the same date his serum osmolality was 273. These labs were consistent with SIADH discharge plan. CONDITION UPON DISCHARGE: Good. ACTIVITY: Ad antoine, but no driving or use of heavy machinery until cleared regarding seizure risk by Neurosurgery. DIET: Regular, but he should maintain 1200 cc per day fluid restriction. FOLLOWUP: He will be seen at the [facility] on 12/16/2017, for a repeat sodium level. He also has follow up with the neurosurgeon, Dr. Sergio Samaniego on 12/19/2017. DISCHARGE MEDICATIONS: 1. Dexamethasone 2 mg p.o. daily through 12/14/2017. 2. Levetiracetam 750 mg p.o. twice daily. 3. Sodium chloride 1000 mg p.o. t.i.d. with meals. ISSUES TO BE ADDRESSED AT FOLLOWUP: 1. Functional status. He will have outpatient therapies primarily to address his right upper extremity ataxia. He can follow up with his primary care and/ or Neurosurgery, Dr. Velasquez, regarding his progress. 2. Hyponatremia due to SIADH and likely related to brain surgery. He will have a repeat basic metabolic profile done on 12/16/2017. He should maintain his fluid restriction until his sodium normalizes. Similarly, he should maintain the sodium chloride supplementation until his sodium normalizes. /[id number]/MODL MTDD
== END 2017-12-13 13:39 | disposition home or self-care (01) | DRG 945 ==
LOC: BREH 13:35
PROVIDERS: ADMIT Internal Medicine; ATTEND Internal Medicine
PROC: F0636ZZ Communicative/Cognitive Integration Skills Treatment of Neurological System - Whole Body (ICD-10-PCS; principal; 2017-12-05)
PROC: F07M3ZZ Motor Function Treatment of Musculoskeletal System - Whole Body (ICD-10-PCS; principal; 2017-12-05)
PROC: F08Z7ZZ Vocational Activities and Functional Community or Work Reintegration Skills Treatment (ICD-10-PCS; principal; 2017-12-05)
DX: R53.81 Other malaise (principal); Z86.011 Personal history of benign neoplasm of the brain; G31.84 Mild cognitive impairment of uncertain or unknown etiology; E22.2 Syndrome of inappropriate secretion of antidiuretic hormone; R27.0 Ataxia, unspecified; G93.6 Cerebral edema; G47.00 Insomnia, unspecified; Z72.89 Other problems related to lifestyle
CPT/HCPCS: 92507-GN; 92522-GN; 97110-GO; 97110-GP; 97112-GP; 97116-GP; 97162-GP; 97165-GO; 97530-GO; 97535-GO; G0515-GO

== ENCOUNTER → 2019-02-02 | Outpatient (CLI) | payer OTHER, MEDICAID ==
[~2019-02-02] MED LIST: GADOBUTROL 10 ML VIAL IVP ONE
== END ==
LOC: FIMAGING 15:50
PROVIDERS: ATTEND Neurological Surgery
DX: Z09 Encounter for follow-up examination after completed treatment for conditions other than malignant neoplasm (principal); D32.0 Benign neoplasm of cerebral meninges
CPT/HCPCS: 70553; A9585; 82565-PO